=== PATIENT | male | born 1960 | race Caucasian/White ===

== ENCOUNTER 2025-11-02 16:16 | Inpatient (IN) ==
--- NOTE | 2025-11-02 16:57 | Emergency Department Note ---
Impression & Plan Cellulitis, Wound cellulitis ED Provider Note CHIEF COMPLAINT: Right foot swelling HISTORY OF PRESENTING ILLNESS: The patient is a 65-year-old male who arrives to the emergency department with family for evaluation of right foot pain, and infection. Patient was seen by his primary care provider, who established care with today. He states he had not seen a provider in the past 5 years. He states upon evaluation at the PCP, the primary care provider told him to come immediately to the emergency department, for concern of infection. Patient has pain, and redness, with swelling in the digits of the foot, dorsal surface, as well as plantar surface of the foot, that extends through the foot, with pain extending into the calf. Patient does have wounds on the dorsal and plantar surface of the foot as well. Patient denies fevers. REVIEW OF SYSTEMS: See HPI for pertinent positives and pertinent negatives. ALLERGIES: See below MEDICATIONS: See below PAST MEDICAL HISTORY: See below PHYSICAL EXAM: VITALS: Vitals are noted on the nurse's note and reviewed by myself. Vital signs stable. GENERAL: 65-year-old male, in no acute distress, nondiaphoretic. SKIN: Erythema, edema noted to the dorsal surface of the right foot, sloughing noted on the dorsal surface of the right great toe. Blister noted on the dorsal surface of the right fourth toe. Erythema, ecchymosis, and sloughing noted to the plantar surface of the right great toe. HEART: Regular rate and rhythm without murmurs gallops or rubs. LUNGS: Clear to auscultation bilaterally without wheezes, rales or rhonchi. No retractions or accessory muscle use. MUSCULOSKELETAL: Full ROM, digits of right foot, full ROM, right ankle. Sensation intact to dull and sharp RLE. NEURO: Patient was alert and oriented to person place and time. No focal neurological deficits. DIFFERENTIAL DIAGNOSIS: Cellulitis, abscess, MRSA infection, DVT, necrotizing fasciitis, dermatitis, drug eruption, allergic reaction, as well as other pathologies. ED COURSE AND MEDICAL DECISION MAKING: HISTORY FROM INDEPENDENT HISTORIAN: Family member at bedside serving as secondary historian. MEDICATIONS GIVEN: 4.5 g IV Zosyn, 1250 mg IV vancomycin, 1 L NSS bolus, tetanus booster MONITOR: Continuous lump inspector: Order was placed for continuous lump inspector. Patient was placed on the lump inspector and continuous pulse ox. Patient was noted to be in normal sinus rhythm at an initial rate of 98 bpm per my interpretation. EKG: EKG was interpreted by myself as normal sinus rhythm at a rate of 80 bpm, no ST elevation or depression. No previous for comparison. INTERPRETATION OF LABS: I interpreted the labs with full lab results as below in the lab section of this note. Pertinent lab results discussed in the MDM section below. INTERPRETATION OF IMAGING: Imaging studies were interpreted by myself and read by radiology as per the imaging section of this note. CONSULTATIONS: Podiatry MDM SUMMARY: The patient is a pleasant, 65-year-old male who arrives to the emergency department for evaluation of the above-stated complaint. Saline lock was established, sepsis workup was obtained. CBC shows leukocytosis 13.76, no anemia. Coags within normal limits. CMP is unremarkable. Glucose 322. Lactate 1.4, procalcitonin 0.03. Troponin negative. Blood cultures obtained, for further evaluation. Chest x-ray imaging per my interpretation shows no acute cardiopulmonary process. X-ray imaging of the right foot shows findings consistent with soft tissue edema, and soft tissue gas involving the great toe which is concerning for necrotizing soft tissue infection. Podiatry was consulted, who recommended admission for IV antibiotics, and surgical intervention. Patient will require MRI imaging of the foot for further evaluation. The was admitted to the [facility] service for further evaluation and management. Please refer to their documentation. DIAGNOSIS: Cellulitis, wound The chart was completed utilizing [employer] Speech voice recognition software. Grammatical errors, random word insertions, pronoun errors, and incomplete sentences are an occasional consequence of this system due to software limitations, ambient noise, and hardware issues. Any formal questions or concerns about the content, text, or information contained within the body of this dictation should be directly addressed to the provider for clarification. Past Med/Surg History Problem List (Updated 11/14/25 @ 18:15 by NANCY Ruiz) Wound cellulitis (Acute) Cellulitis (Acute) Diabetes type 2 Encounter for pre-operative examination Osteomyelitis of great toe of right foot Unspecified open wound, right foot, initial encounter Tobacco use disorder Medical History Diabetes mellitus type 2 in nonobese CAD (coronary artery disease) Alcohol use disorder Diabetic ulcer of right great toe Peripheral arterial disease Surgical History Hx of heart artery stent Family History Father Heart disease Diabetes Social History Smoking Status: Current every day smoker Tobacco Type: Cigarettes Hx Alcohol Use: Yes Hx Substance Use: No Preferred Language: Turkmen Communication Ability: Effective Scenario Writer Required: No Beliefs That Will Affect Care: None Current Living Situation: Alone Feels Safe at Home: Yes Assistive Devices: None Allergies Allergies Allergy/AdvReac Type Severity Reaction Status Date / Time No Known Allergies Allergy Unverified 11/02/25 17:36 Home Meds Home Medications Medication Instructions Recorded Confirmed naproxen sodium 220 mg tablet 220 mg PO DAILY PRN Pain 11/02/25 11/02/25 Previous Rx's Medication Instructions Recorded blood sugar diagnostic (True #100 ea 11/09/25 Metrix Glucose Test Strip) blood-glucose meter (True Metrix #1 ea 11/09/25 Glucose Meter) insulin glargine U-300 conc 300 21 unit (0.07 mL) subcut DAILY #6 11/09/25 unit/mL (3 mL) subcutaneous pen mL lancets 30 gauge (TRUEplus Lancets) #100 ea 11/09/25 metformin 500 mg tablet,extended 500 mg PO DAILY #30 tabs 11/09/25 release 24 hr pen needle, diabetic 32 gauge x #100 ea 11/09/2532" amoxicillin 875 mg-potassium 1 tab PO BIDM 1 week #14 tabs 11/10/25 clavulanate 125 mg tablet aspirin 81 mg tablet,delayed 81 mg PO DAILY #30 tabs 11/10/25 release atorvastatin 40 mg tablet 40 mg PO QAM #30 tabs 11/10/25 folic acid 1 mg tablet 1 mg PO QAM #30 tabs 11/10/25 nicotine 21 mg/24 hr daily 1 patch transdermal QAM #28 ea 11/10/25 transdermal patch (Nicoderm CQ) thiamine HCl (vitamin B1) 100 mg 100 mg PO QAM #30 tabs 11/10/25 tablet Results & Data (ED) Vital Signs Vital Signs - 24 hr 11/02/25 16:19 Temperature 36.7 C Temperature Source Temporal Artery Scan Pulse Rate 98 H Respiratory Rate 18 Respiratory Effort / Characteristics Non-Labored Spontaneous Respiratory Depth Normal Blood Pressure 127/85 Blood Pressure Mean 99 Pulse Oximetry 96 Oxygen Delivery Method Room Air Sepsis Recent Fever Within 48 Hours No Sepsis New/Unexplained Change in Mental Status No Sepsis Action Taken by Nursing No Action Required Home Medications Current Medication List: was personally reviewed by me Laboratory Data Attestation: I reviewed the patient's lab results. 11/10/25 06:05 11/10/25 06:05 Lab Results 11/02/25 11/02/25 Range/Units 16:35 17:00 WBC 13.76 H (4.8-10.8) K/ul RBC 4.94 (4.70-6.10) M/uL Hgb 17.0 (14.0-18.0) g/dL Hct 45.8 (42.0-52.0) % MCV 92.7 (80.0-100.0) fL MCH 34.4 H (25.0-34.0) pg MCHC 37.1 H (32.0-36.0) g/dL RDW Std Deviation 43.5 (36.4-46.3) fL RDW Coeff of Maria Elena 12.6 (11.5-14.5) % Plt Count 275 (130-400) K/uL MPV 10.0 (9.4-12.4) fL Immature Gran % (Auto) 0.9 % Neut % (Auto) 82.0 % Lymph % (Auto) 8.0 % [place] % (Auto) 7.8 % Eos % (Auto) 0.6 % Baso % (Auto) 0.7 % Neut # (Auto) 11.29 H (1.40-6.50) K/uL Lymph # (Auto) 1.10 L (1.20-3.40) K/uL [place] # (Auto) 1.08 H (0.11-0.59) K/uL Eos # (Auto) 0.08 (0.00-0.50) K/uL Baso # (Auto) 0.09 (0.00-0.20) K/uL Immature Gran # (Auto) 0.12 (0.01-0.20) K/uL PT 10.9 (9.0-12.0) Seconds INR 1.0 (0.9-1.1) APTT 26 (21-31) Seconds PTT Ratio 1.0 Sodium 136 (136-145) mmol/L Potassium 3.8 (3.5-5.1) mmol/L Chloride 101 (98-107) mmol/L Carbon Dioxide 26 (21-32) mmol/L Anion Gap 9 (3-11) BUN 4 L (6-23) mg/dl Creatinine 0.57 L (0.6-1.4) mg/dl Est Cr Clr Drug Dosing 96.6 ml/min eGFR 107.45 BUN/Creatinine Ratio 7.0 L (10-20) Glucose 322 H* (70-99(Fasting)) mg/dl Lactate 1.4 (0.4-2.0) mmol/L Calcium 9.2 (8.6-10.3) mg/dl Magnesium 1.8 (1.7-2.4) mg/dl Total Bilirubin 0.6 (0.2-1.0) mg/dl AST 27 (13-39) U/L ALT 21 (7-52) U/L Alkaline Phosphatase 123 H (34-104) U/L Troponin I High Sens 3.4 (0-20) pg/ml Total Protein 7.9 (6.0-8.3) gm/dl Albumin 3.3 L (3.4-5.0) gm/dl Globulin 4.6 H (2.5-4.0) gm/dl Albumin/Globulin Ratio 0.7 L (0.9-2) Procalcitonin 0.03 (0-0.5) ng/ml Administered Medications Discontinued Medications Amoxicillin/Clavulanate Potassium (Amoxicillin/Clavulanate 875 Mg Tab) 1 tab PO BIDM [facility]; Protocol Stop: 11/14/25 16:59 Last Admin: 11/12/25 08:42 Dose: 1 tab Documented By: Admin: 11/11/25 17:33 Dose: 1 tab Documented By: Admin: 11/11/25 08:26 Dose: 1 tab Documented By: Admin: 11/10/25 17:29 Dose: 1 tab Documented By: Admin: 11/10/25 07:54 Dose: 1 tab Documented By: Admin: 11/09/25 18:01 Dose: 1 tab Documented By: Admin: 11/09/25 07:53 Dose: 1 tab Documented By: Admin: 11/08/25 17:35 Dose: 1 tab Documented By: Admin: 11/08/25 08:39 Dose: 1 tab Documented By: Admin: 11/07/25 16:40 Dose: 1 tab Documented By: EMILIANO Aspirin (Aspirin 81 Mg Ectab) 81 mg PO DAILY [facility] Stop: 12/02/25 22:08 Last Admin: 11/12/25 08:42 Dose: 81 mg Documented By: Admin: 11/11/25 08:27 Dose: 81 mg Documented By: Admin: 11/10/25 07:54 Dose: 81 mg Documented By: Admin: 11/09/25 07:53 Dose: 81 mg Documented By: Admin: 11/08/25 08:39 Dose: 81 mg Documented By: Admin: 11/07/25 09:07 Dose: 81 mg Documented By: Admin: 11/06/25 08:13 Dose: 81 mg Documented By: srinivasan Admin: 11/05/25 07:41 Dose: Not Given Documented By: Admin: 11/04/25 08:51 Dose: 81 mg Documented By: Admin: 11/03/25 07:17 Dose: 81 mg Documented By: Admin: 11/03/25 00:21 Dose: 81 mg Documented By: allison Atorvastatin Calcium (Atorvastatin 40 Mg Tab) 40 mg PO QAM [facility] Stop: 12/03/25 12:14 Last Admin: 11/12/25 08:42 Dose: 40 mg Documented By: Admin: 11/11/25 08:27 Dose: 40 mg Documented By: Admin: 11/10/25 07:55 Dose: 40 mg Documented By: Admin: 11/09/25 07:53 Dose: 40 mg Documented By: Admin: 11/08/25 08:40 Dose: 40 mg Documented By: Admin: 11/07/25 10:00 Dose: 40 mg Documented By: Admin: 11/06/25 08:12 Dose: 40 mg Documented By: srinivasan Admin: 11/05/25 07:35 Dose: 40 mg Documented By: Admin: 11/04/25 08:51 Dose: 40 mg Documented By: Admin: 11/03/25 13:54 Dose: 40 mg Documented By: ASA Bupivacaine HCl (Bupivacaine 0.5 % 5 Mg/1 Ml Mpf 30ml Vial) Confirm Administered Dose 30 ml .ROUTE .STK-MED ONE Stop: 11/05/25 13:08 Last Admin: 11/05/25 14:14 Dose: Not Given Documented By: LEMUEL Diphtheria/Pertussis/Tetanus Vacc (Diphther/Tetan/Pertus Vaccine (Tdap, Adol/Adult) 0.5ml) 0.5 ml IM .ONCE ONE Stop: 11/02/25 22:31 Last Admin: 11/02/25 22:53 Dose: 0.5 ml Documented By: KHOA Folic Acid (Folic Acid 1 Mg Tab) 1 mg PO QAM [facility] Stop: 12/02/25 22:08 Last Admin: 11/12/25 08:42 Dose: 1 mg Documented By: Admin: 11/11/25 08:27 Dose: 1 mg Documented By: Admin: 11/10/25 07:55 Dose: 1 mg Documented By: Admin: 11/09/25 07:53 Dose: 1 mg Documented By: Admin: 11/08/25 08:40 Dose: 1 mg Documented By: Admin: 11/07/25 10:00 Dose: 1 mg Documented By: Admin: 11/06/25 08:12 Dose: 1 mg Documented By: srinivasan Admin: 11/05/25 07:35 Dose: 1 mg Documented By: Admin: 11/04/25 08:51 Dose: 1 mg Documented By: Admin: 11/03/25 07:17 Dose: 1 mg Documented By: Admin: 11/03/25 00:21 Dose: 1 mg Documented By: abl Gadobutrol (Gadobutrol 7.5ml Vial) 5.5 ml IV ONCE ONE Stop: 11/03/25 08:40 Last Admin: 11/03/25 08:40 Dose: 5.5 ml Documented By: EAN Heparin Sodium (Porcine) (Heparin Sod 5,000 Unit/0.5 Ml Vial) 5,000 units SQ Q12 [facility] Stop: 12/02/25 22:08 Last Admin: 11/12/25 08:43 Dose: 5,000 units Documented By: Admin: 11/11/25 21:01 Dose: 5,000 units Documented By: saloni Admin: 11/11/25 08:34 Dose: 5,000 units Documented By: Admin: 11/10/25 21:42 Dose: 5,000 units Documented By: Admin: 11/05/25 20:20 Dose: Not Given Documented By: Admin: 11/05/25 07:31 Dose: Not Given Documented By: WELDER FITTER GAS Admin: 11/04/25 21:06 Dose: 5,000 units Documented By: Admin: 11/04/25 08:52 Dose: Not Given Documented By: WELDER FITTER GAS Admin: 11/03/25 20:32 Dose: 5,000 units Documented By: Admin: 11/03/25 07:24 Dose: 5,000 units Documented By: Admin: 11/02/25 22:54 Dose: 5,000 units Documented By: KHOA Vancomycin HCl 1,250 mg/ (Sodium Chloride) 525 mls @ 200 mls/hr IV NOW ONE Stop: 11/02/25 20:03 Last Infusion: 11/02/25 21:30 Dose: Infused Documented By: allison Admin: 11/02/25 18:36 Dose: 200 mls/hr Documented By: ABEL Piperacillin Sod/Tazobactam Sod (Zosyn) 4.5 gm in 100 mls @ 200 mls/hr IV NOW ONE; Protocol Stop: 11/02/25 17:55 Last Infusion: 11/02/25 18:12 Dose: Infused Documented By: Admin: 11/02/25 17:42 Dose: 200 mls/hr Documented By: jameson Sodium Chloride (Nss) 1,000 mls @ 999 mls/hr IV .Q1H1M ONE Stop: 11/02/25 18:33 Last Infusion: 11/02/25 19:58 Dose: Infused Documented By: allison Admin: 11/02/25 17:41 Dose: 999 mls/hr Documented By: jameson Lactated Ringer's (Lr) 1,000 mls @ 80 mls/hr IV .[id number] ONE Stop: 11/03/25 10:38 Last Infusion: 11/03/25 11:07 Dose: Infused Documented By: Infusion: 11/03/25 09:30 Dose: 80 mls/hr Documented By: Infusion: 11/03/25 07:58 Dose: 0 mls/hr Documented By: Admin: 11/02/25 22:58 Dose: 80 mls/hr Documented By: KHOA Piperacillin Sod/Tazobactam Sod (Zosyn) 4.5 gm in 100 mls @ 25 mls/hr IV Q8H [facility]; Protocol Stop: 12/15/25 00:00 Last Infusion: 11/07/25 13:17 Dose: Infused Documented By: Admin: 11/07/25 09:05 Dose: 25 mls/hr Documented By: Infusion: 11/07/25 03:28 Dose: Infused Documented By: Admin: 11/06/25 23:28 Dose: 25 mls/hr Documented By: Infusion: 11/06/25 19:46 Dose: Infused Documented By: Admin: 11/06/25 15:46 Dose: 25 mls/hr Documented By: [email or web address] Infusion: 11/06/25 12:32 Dose: Infused Documented By: Admin: 11/06/25 08:12 Dose: 25 mls/hr Documented By: srinivasan Infusion: 11/06/25 04:15 Dose: Infused Documented By: Admin: 11/06/25 00:08 Dose: 25 mls/hr Documented By: Infusion: 11/05/25 20:21 Dose: Infused Documented By: Admin: 11/05/25 16:07 Dose: 25 mls/hr Documented By: WELDER FITTER GAS Infusion: 11/05/25 12:15 Dose: Infused Documented By: WELDER FITTER GAS Admin: 11/05/25 07:38 Dose: 25 mls/hr Documented By: WELDER FITTER GAS Infusion: 11/05/25 04:48 Dose: Infused Documented By: Admin: 11/05/25 00:54 Dose: 25 mls/hr Documented By: Infusion: 11/04/25 20:56 Dose: Infused Documented By: Admin: 11/04/25 16:52 Dose: 25 mls/hr Documented By: WELDER FITTER GAS Infusion: 11/04/25 13:06 Dose: Infused Documented By: WELDER FITTER GAS Admin: 11/04/25 09:04 Dose: 25 mls/hr Documented By: WELDER FITTER GAS Infusion: 11/04/25 05:46 Dose: Infused Documented By: Admin: 11/04/25 01:46 Dose: 25 mls/hr Documented By: Infusion: 11/03/25 20:52 Dose: Infused Documented By: Admin: 11/03/25 16:52 Dose: 25 mls/hr Documented By: Infusion: 11/03/25 11:07 Dose: Infused Documented By: Infusion: 11/03/25 07:58 Dose: 25 mls/hr Documented By: Infusion: 11/03/25 07:36 Dose: 0 mls/hr Documented By: Admin: 11/03/25 07:16 Dose: 25 mls/hr Documented By: Infusion: 11/03/25 06:00 Dose: Infused Documented By: abl Admin: 11/03/25 01:51 Dose: 25 mls/hr Documented By: abl Vancomycin HCl 750 mg/ Sodium (Chloride) 265 mls @ 200 mls/hr IV Q8H [facility] Stop: 12/15/25 00:00 Last Infusion: 11/04/25 11:03 Dose: Infused Documented By: WELDER FITTER GAS Admin: 11/04/25 09:04 Dose: 200 mls/hr Documented By: WELDER FITTER GAS Infusion: 11/04/25 03:07 Dose: Infused Documented By: Admin: 11/04/25 01:47 Dose: 200 mls/hr Documented By: Infusion: 11/03/25 18:33 Dose: Infused Documented By: Admin: 11/03/25 16:53 Dose: 200 mls/hr Documented By: Infusion: 11/03/25 09:30 Dose: Infused Documented By: Admin: 11/03/25 07:58 Dose: 200 mls/hr Documented By: WRBrittany Infusion: 11/03/25 01:49 Dose: Infused Documented By: abl Admin: 11/03/25 00:23 Dose: 200 mls/hr Documented By: abl Vancomycin HCl (Vancomycin Hcl / Nss) 1,000 mg in 270 mls @ 200 mls/hr IV Q12H [facility] Stop: 12/16/25 20:59 Last Infusion: 11/05/25 22:17 Dose: Infused Documented By: Admin: 11/05/25 20:34 Dose: 200 mls/hr Documented By: Infusion: 11/05/25 09:48 Dose: Infused Documented By: WELDER FITTER GAS Admin: 11/05/25 07:43 Dose: 200 mls/hr Documented By: Infusion: 11/04/25 22:44 Dose: Infused Documented By: Admin: 11/04/25 21:23 Dose: 200 mls/hr Documented By: ADORE Lactated Ringer's (Lr) 1,000 mls @ 15 mls/hr IV .Q24H [facility] Stop: 11/08/25 11:29 Last Admin: 11/07/25 15:16 Dose: Not Given Documented By: Infusion: 11/07/25 15:16 Dose: Infused Documented By: Infusion: 11/07/25 15:15 Dose: 0 mls/hr Documented By: Admin: 11/06/25 11:08 Dose: 15 mls/hr Documented By: srinivasan Infusion: 11/05/25 20:53 Dose: Infused Documented By: Admin: 11/05/25 11:28 Dose: 15 mls/hr Documented By: ROSY Potassium Chloride (K Ross / Wtr) 10 meq in 100 mls @ 100 mls/hr IV Q1H [facility] Stop: 11/05/25 17:14 Last Infusion: 11/05/25 19:41 Dose: Infused Documented By: Admin: 11/05/25 17:06 Dose: 100 mls/hr Documented By: Infusion: 11/05/25 17:05 Dose: Infused Documented By: Admin: 11/05/25 16:05 Dose: 100 mls/hr Documented By: Infusion: 11/05/25 15:59 Dose: Infused Documented By: Admin: 11/05/25 14:59 Dose: 100 mls/hr Documented By: stef Infusion: 11/05/25 14:57 Dose: Infused Documented By: stef Admin: 11/05/25 13:49 Dose: 100 mls/hr Documented By: LEMUEL Vancomycin HCl 750 mg/ Sodium (Chloride) 265 mls @ 200 mls/hr IV Q12H [facility] Stop: 12/16/25 20:59 Last Infusion: 11/07/25 10:28 Dose: Infused Documented By: Admin: 11/07/25 09:03 Dose: 200 mls/hr Documented By: Infusion: 11/06/25 23:21 Dose: Infused Documented By: Admin: 11/06/25 21:57 Dose: 200 mls/hr Documented By: Infusion: 11/06/25 11:02 Dose: Infused Documented By: Admin: 11/06/25 09:30 Dose: 200 mls/hr Documented By: srinivasan Insulin Aspart (Insulin Aspart Per Unit Charge) 0 units SC ACHS [facility] Stop: 12/02/25 22:08 Last Admin: 11/05/25 20:35 Dose: 3 units Documented By: TEODORO Co-signed By: JACKIE Admin: 11/05/25 17:15 Dose: 4 units Documented By: LEMUEL Co-signed By: GAYLE Admin: 11/05/25 12:15 Dose: Not Given Documented By: Admin: 11/05/25 09:46 Dose: Not Given Documented By: Admin: 11/04/25 21:06 Dose: 2 units Documented By: ADORE Co-signed By: CAROL Admin: 11/04/25 18:10 Dose: 4 units Documented By: LEMUEL Co-signed By: stef Admin: 11/04/25 12:43 Dose: 6 units Documented By: ELMUEL Co-signed By: stef Admin: 11/04/25 09:54 Dose: 3 units Documented By: LEMUEL Co-signed By: stef Admin: 11/03/25 20:33 Dose: 1 units Documented By: LORE Co-signed By: MOISES Admin: 11/03/25 18:26 Dose: Not Given Documented By: Admin: 11/03/25 11:38 Dose: 3 units Documented By: REUBEN Co-signed By: JUDD Admin: 11/03/25 07:31 Dose: 2 units Documented By: REUBEN Co-signed By: MARY Admin: 11/02/25 22:55 Dose: 5 units Documented By: KHOA Co-signed By: abl Insulin Aspart (Insulin Aspart Per Unit Charge) 0 units SC Q6 [facility] Stop: 12/06/25 05:59 Last Admin: 11/06/25 23:27 Dose: Not Given Documented By: Admin: 11/06/25 17:47 Dose: 1 units Documented By: srinivasan Co-signed By: EMILIANO Admin: 11/06/25 11:46 Dose: Not Given Documented By: srinivasan Admin: 11/06/25 05:51 Dose: 3 units Documented By: TEODORO Co-signed By: MOISES Insulin Aspart (Insulin Aspart Per Unit Charge) 0 units SC ACHS [facility] Stop: 12/07/25 07:29 Last Admin: 11/12/25 12:10 Dose: 6 units Documented By: JAKE Co-signed By: CELSO Admin: 11/12/25 08:43 Dose: 8 units Documented By: JAKE Co-signed By: SUZY Admin: 11/11/25 21:01 Dose: 1 units Documented By: saloni Co-signed By: UMER Admin: 11/11/25 17:35 Dose: 10 units Documented By: SORAYA Co-signed By: YVROSE Admin: 11/11/25 12:33 Dose: 6 units Documented By: SORAYA Co-signed By: YVROSE Admin: 11/11/25 08:31 Dose: 9 units Documented By: SORAYA Co-signed By: YVROSE Admin: 11/10/25 21:42 Dose: 1 units Documented By: ADORE Co-signed By: ACStephane Admin: 11/10/25 17:40 Dose: 8 units Documented By: SAÚL Co-signed By: matthew Admin: 11/10/25 13:10 Dose: 11 units Documented By: SAÚL Co-signed By: CMBrittany Admin: 11/10/25 09:17 Dose: 7 units Documented By: SAÚL Co-signed By: CMBrittany Admin: 11/09/25 20:36 Dose: 1 units Documented By: ADORE Co-signed By: ACO Admin: 11/09/25 18:01 Dose: 6 units Documented By: KMAustyn Co-signed By: mhc Admin: 11/09/25 12:44 Dose: 10 units Documented By: KMAustyn Co-signed By: AMS Admin: 11/09/25 10:24 Dose: 8 units Documented By: KMAustyn Co-signed By: [facility] [place] Admin: 11/08/25 21:12 Dose: Not Given Documented By: Admin: 11/08/25 17:36 Dose: 14 units Documented By: EMILIANO Co-signed By: OLI Admin: 11/08/25 13:02 Dose: 5 units Documented By: EMILIANO Co-signed By: carroll Admin: 11/08/25 08:45 Dose: 5 units Documented By: EMILIAON Co-signed By: OLI Admin: 11/07/25 20:42 Dose: 1 units Documented By: TEODORO Co-signed By: NARCISA Admin: 11/07/25 17:27 Dose: 5 units Documented By: EMILIANO Co-signed By: CRYSTAL Admin: 11/07/25 12:30 Dose: 6 units Documented By: EMILIANO Co-signed By: CRYSTAL Admin: 11/07/25 09:01 Dose: 7 units Documented By: EMILIANO Co-signed By: CRYSTAL Insulin Aspart (Insulin Aspart Per Unit Charge) 0 units SC TODAY@0000,0400 [facility] Stop: 12/08/25 00:00 Last Admin: 11/08/25 04:26 Dose: Not Given Documented By: Admin: 11/08/25 00:07 Dose: Not Given Documented By: TEODORO Insulin Glargine (Lantus Per Unit Charge) 10 units SQ ONE ONE Stop: 11/02/25 22:10 Last Admin: 11/03/25 00:21 Dose: 10 units Documented By: allison Co-signed By: DENZEL Insulin Glargine (Lantus Per Unit Charge) 8 units SQ HS [facility] Stop: 12/03/25 20:59 Last Admin: 11/03/25 20:32 Dose: 8 units Documented By: LORE Co-signed By: MOISES Insulin Glargine (Lantus Per Unit Charge) 10 units SQ HS [facility] Stop: 12/04/25 20:59 Last Admin: 11/05/25 20:34 Dose: 10 units Documented By: TEODORO Co-signed By: JACKIE Admin: 11/04/25 21:06 Dose: 10 units Documented By: ADORE Co-signed By: CAROL Insulin Glargine (Insulin Glargine 100 Unit/Ml Vial) 0 units SC BID [facility]; Protocol Stop: 12/07/25 08:59 Last Admin: 11/07/25 10:18 Dose: Not Given Documented By: EMILIANO Insulin Glargine (Lantus Per Unit Charge) 0 units SC BID [facility]; Protocol Stop: 12/07/25 08:59 Last Admin: 11/07/25 10:21 Dose: Not Given Documented By: EMILIANO Insulin Glargine (Lantus Per Unit Charge) 0 units SC BID [facility]; Protocol Stop: 12/07/25 09:44 Last Admin: 11/07/25 10:00 Dose: 5 units Documented By: EMILIANO Co-signed By: CRYSTAL Insulin Glargine (Lantus Per Unit Charge) 0 units SC [facility]; Protocol Stop: 12/08/25 08:59 Last Admin: 11/08/25 08:42 Dose: 10 units Documented By: EMILIANO Co-signed By: OLI Insulin Glargine (Lantus Per Unit Charge) 5 units SC NOW ONE; Protocol Stop: 11/07/25 13:01 Last Admin: 11/07/25 13:21 Dose: 5 units Documented By: EMILIANO Co-signed By: BRANDON Insulin Glargine (Lantus Per Unit Charge) 12 units [facility]; Protocol Stop: 12/08/25 08:59 Last Admin: 11/10/25 09:18 Dose: 12 units Documented By: SAÚL Co-signed By: OLI Admin: 11/09/25 10:23 Dose: 12 units Documented By: SAÚL Co-signed By: [email or web address] Insulin Glargine (Lantus Per Unit Charge) 16 units [facility]; Protocol Stop: 12/08/25 08:59 Last Admin: 11/11/25 08:31 Dose: 16 units Documented By: SORAYA Co-signed By: YVROSE Insulin Glargine (Lantus Per Unit Charge) 18 units [facility]; Protocol Stop: 12/08/25 08:59 Last Admin: 11/12/25 08:49 Dose: 18 units Documented By: JAKE Co-signed By: SUZY Miscellaneous (Remove Nicoderm Patch) 1 each N/A DAILY@[id number] [facility] Stop: 12/03/25 08:58 Last Admin: 11/12/25 08:42 Dose: 1 each Documented By: Admin: 11/11/25 08:26 Dose: 1 each Documented By: Admin: 11/10/25 07:56 Dose: 1 each Documented By: Admin: 11/09/25 07:54 Dose: 1 each Documented By: Admin: 11/08/25 08:39 Dose: 1 each Documented By: Admin: 11/07/25 10:00 Dose: 1 each Documented By: Admin: 11/06/25 08:13 Dose: 1 each Documented By: [email or web address] Admin: 11/05/25 07:35 Dose: 1 each Documented By: Admin: 11/04/25 08:51 Dose: 1 each Documented By: Admin: 11/03/25 07:16 Dose: 1 each Documented By: WRM Nicotine (Nicotine 21 Mg/24 Hr Tdsy) 1 patch TD QAM POORNIMA Stop: 12/02/25 22:08 Last Admin: 11/12/25 08:42 Dose: 1 patch Documented By: Admin: 11/11/25 08:27 Dose: 1 patch Documented By: Admin: 11/10/25 07:55 Dose: 1 patch Documented By: Admin: 11/09/25 07:53 Dose: 1 patch Documented By: Admin: 11/08/25 08:40 Dose: 1 patch Documented By: Admin: 11/07/25 09:07 Dose: 1 patch Documented By: Admin: 11/06/25 08:12 Dose: 1 patch Documented By: srinivasan Admin: 11/05/25 07:36 Dose: 1 patch Documented By: Admin: 11/04/25 08:50 Dose: 1 patch Documented By: Admin: 11/03/25 07:17 Dose: 1 patch Documented By: Admin: 11/03/25 00:19 Dose: 1 patch Documented By: abl Potassium Chloride (Potassium Chloride Crtab 20 Meq Tabcr) 40 meq PO TID POORNIMA Stop: 11/06/25 09:01 Last Admin: 11/06/25 08:12 Dose: 40 meq Documented By: srinivasan Admin: 11/05/25 20:35 Dose: 40 meq Documented By: Admin: 11/05/25 13:45 Dose: 40 meq Documented By: LEMUEL Thiamine HCl (Thiamine Hcl 100 Mg Tab) 100 mg PO QAM POORNIMA Stop: 12/02/25 22:08 Last Admin: 11/12/25 08:42 Dose: 100 mg Documented By: Admin: 11/11/25 08:27 Dose: 100 mg Documented By: Admin: 11/10/25 07:55 Dose: 100 mg Documented By: Admin: 11/09/25 07:53 Dose: 100 mg Documented By: Admin: 11/08/25 08:40 Dose: 100 mg Documented By: Admin: 11/07/25 10:00 Dose: 100 mg Documented By: Admin: 11/06/25 08:13 Dose: 100 mg Documented By: srinivasan Admin: 11/05/25 07:35 Dose: 100 mg Documented By: Admin: 11/04/25 08:51 Dose: 100 mg Documented By: WELDER FITTER GAS Admin: 11/03/25 07:17 Dose: 100 mg Documented By: Admin: 11/03/25 00:20 Dose: 100 mg Documented By: abl Vancomycin HCl (Vancomycin Hcl 1000mg/20ml Vial) Confirm Administered Dose 50 mg .ROUTE .STK-MED ONE Stop: 11/05/25 13:08 Last Admin: 11/05/25 14:14 Dose: Not Given Documented By: WELDER FITTER GAS Vancomycin HCl (Vancomycin Hcl 1000mg/20ml Vial) Confirm Administered Dose 50 mg .ROUTE .STK-MED ONE Stop: 11/06/25 14:50 Last Admin: 11/06/25 16:18 Dose: 50 mg Documented By: [id number] Imaging Data Attestation: I personally reviewed and interpreted this imaging study as follows: Discharge Plan Visit Data Chief Complaint: Foot Injury/Pain Stated Complaint: R FOOT SWELLING, REF BY DOC ED Provider: [facility] ED Midlevel Provider: Sierra Eaton Discharge Problem: Cellulitis, Wound cellulitis Patient Disposition: Admitted As Inpatient Condition: Critical Discharge Instructions Interventions: ED Discharge Assessment Last Done: 11/02/25 22:10
[2025-11-02 17:06] LABS: Hematocrit (blood only) 45.8 % (42.0-52.0); Hemoglobin 17.0 g/dL (14.0-18.0); Immature Granulocytes # (auto) 0.12 K/uL (0.01-0.20); Immature Granulocytes % (auto) 0.9 %; Mean Corpuscular Hemoglobin 34.4 pg (25.0-34.0); Mean Corpuscular Volume 92.7 fL (80.0-100.0); Platelet Count 275 K/uL (130-400); RDW Standard Deviation 43.5 fL (36.4-46.3); Red Blood Count 4.94 M/uL (4.70-6.10); White Blood Count 13.76 K/ul (4.8-10.8)
[2025-11-02] MEDS ORDERED: VANCOMYCIN CONSULT ACTIVE PRN (17:26)
[2025-11-02 17:31] LABS: Alanine Aminotransferase 21.0 U/L (7-52); Albumin Globulin Ratio 0.7 (0.9-2); Albumin Level 3.3 gm/dl (3.4-5.0); Alkaline Phosphatase 123.0 U/L (34-104); Anion Gap 9.0 (3-11); Bilirubin,Total 0.6 mg/dl (0.2-1.0); Blood Urea Nitrogen 4.0 mg/dl (6-23); Calcium 9.2 mg/dl (8.6-10.3); Carbon Dioxide 26.0 mmol/L (21-32); Chloride 101.0 mmol/L (98-107); Creatinine Clr Calc Pharmacy 96.6 ml/min; Globulin 4.6 gm/dl (2.5-4.0); Glucose 322.0 mg/dl (70-99(Fasting)); Magnesium 1.8 mg/dl (1.7-2.4); Potassium 3.8 mmol/L (3.5-5.1); Sodium 136.0 mmol/L (136-145); Total Protein 7.9 gm/dl (6.0-8.3)
[2025-11-02 17:38] LABS: INR 1.0 (0.9-1.1); Partial Thromboplastin Time 26 Seconds (21-31); Prothrombin Time 10.9 Seconds (9.0-12.0)
[2025-11-02] MEDS: SODIUM CHLORIDE 0.9% 1,000 ML IV ONE (17:41)
[2025-11-02] MEDS: PIPERACILLIN/TAZOBACTAM 4.5 GM/100 ML BAG IV ONE (17:42)
--- NOTE | 2025-11-02 18:21 | XRay Report ---
Clinical History: Sepsis Technique: A frontal view of the chest was obtained Findings: There are no confluent pulmonary infiltrates. The heart size is within normal limits. No pleural effusion or pneumothorax is seen. There is no definite pulmonary nodule. No fracture is noted. No foreign body is seen Impression: No active disease Electronically signed by Ceasar Malhotra 11-02-2025 6:21 PM
[2025-11-02] MEDS: VANCOMYCIN HCL 1,250 MG in SODIUM CHLORIDE 0.9% 500 ML IV ONE (18:36)
--- NOTE | 2025-11-02 18:58 | History & Physical Report ---
Date of Service November 02, 2025 Assessment & Plan (1) Unspecified open wound, right foot, initial encounter: Plan: Right foot wound infection Suspected osteomyelitis --Foot Xray, MRI pending --Normal lactate, procalcitonin -- Blood cultures pending --Started on broad-spectrum antibiotics vancomycin, Zosyn Check nasal MRSA, ESR, CRP Gentle IV fluids Podiatry consulted animation camera operator consulted as well Uncontrolled diabetes mellitus type 2 Update HbA1c Currently not taking any medications ISS, basal Insulin, Accu checks, Diabetic diet Pharmacy Glycemic control consult telehealth nurse educator consulted as well Elevated blood pressure Likely situational Monitor Consider antihypertensives if needed Coronary artery disease S/P stent Currently not taking any medications Started on aspirin 81 mg daily Check lipid panel Tobacco use disorder Currently smokes 1-1/2 to 2 packs/day Counseled to quit smoking Nicotine patch Alcohol use disorder Drinks 2 shots of swathi, 2 beers on daily basis Last drink yesterday Thiamine, folic acid Counseled to quit drinking Alcohol withdrawal protocol DVT Px: Heparin SQ CODE STATUS Full code History of Present Illness Chief Complaint: Foot Wound Primary Care Provider: Javi Morris MD Patient is a 65-year-old male with history of coronary artery disease S/P stent, diabetes mellitus type 2, tobacco use disorder, alcohol use disorder and no other significant past medical history presents with history of worsening right foot infection. Patient states that he has not seen a physician for about 5 years. Currently he does not take any medications. States that he noticed to develop blister on right foot about 1 week ago which she peeled off the skin. Since then, patient had worsening right foot swelling, redness, pain and so visited PCP today who recommended to go to ED for further evaluation. Denies any trauma, insect bite. Denies any history of chest pain, dyspnea, fever, chills, headache, focal weakness, numbness, nausea, vomiting, abdominal pain, diarrhea, dysuria. Allergies Allergy/AdvReac Type Severity Reaction Status Date / Time No Known Allergies Allergy Unverified 11/02/25 17:36 Home Medications Medication Instructions Recorded Confirmed Type naproxen sodium 220 mg tablet 220 mg PO DAILY PRN Pain 11/02/25 11/02/25 History Past Med/Surg History Problem List (Updated 11/02/25 @ 20:10 by Pj Lake MD) Unspecified open wound, right foot, initial encounter Alcohol use disorder Tobacco use disorder Diabetes mellitus type 2 in nonobese CAD (coronary artery disease) Family History (Updated 11/02/25 @ 20:08 by Pj Lake MD) Father Heart disease Diabetes Social History (Updated 11/02/25 @ 20:08 by Pj Lake MD) Smoking Status: Current every day smoker Hx Alcohol Use: Yes Hx Substance Use: No Preferred Language: Romanian Feels Safe at Home: Yes Review of Systems Review of Systems: All systems reviewed & are unremarkable except as noted in Subjective Physical Exam Physical Exam: Physical Exam: Vitals signs as noted above General Appearance: Thin, frail, chronically appearing, no apparent distress Head: normocephalic, Atraumatic Eyes: normal inspection, EOMI Neck: supple, Trachea midline Respiratory/Chest: Normal breath sounds, CTA, No accessory muscle use Cardiovascular: S1, S2, No murmur Abdomen/GI:Soft, Non tender, Bowel sounds present Extremities/Musculoskeletal:normal inspection, 1+ B/L LE edema Neurologic/Psych:AAOX3, grossly no focal neurological deficits Skin: normal color, warm,+ Right great toe plantar wound/Necrotic Results & Data Results & Data Vital Signs (Past 12 Hours) Vital Signs Temp Pulse Pulse Resp BP BP Pulse Ox 11/02/25 18:00 81 23 149/94 H 94 11/02/25 17:20 87 11/02/25 17:00 95 H 17 145/109 H 94 11/02/25 16:59 11/02/25 16:19 36.7 C 98 H 18 127/85 96 O2 Del Method 11/02/25 18:00 11/02/25 17:20 11/02/25 17:00 11/02/25 16:59 Room Air 11/02/25 16:19 Room Air Laboratory Results Short CBC 11/02/25 Range/Units 16:35 WBC 13.76 H (4.8-10.8) K/ul Hgb 17.0 (14.0-18.0) g/dL Hct 45.8 (42.0-52.0) % Plt Count 275 (130-400) K/uL BMP 11/02/25 16:35 Sodium 136 Potassium 3.8 Chloride 101 Carbon Dioxide 26 BUN 4 L Creatinine 0.57 L Glucose 322 H* Calcium 9.2 Liver Function 11/02/25 Range/Units 16:35 Total Bilirubin 0.6 (0.2-1.0) mg/dl AST 27 (13-39) U/L ALT 21 (7-52) U/L Alkaline Phosphatase 123 H (34-104) U/L Albumin 3.3 L (3.4-5.0) gm/dl Diagnostic Findings --CXR:No active disease -- Foot x-ray pending Medications Administered Home Medications Medication Instructions Recorded Confirmed naproxen sodium 220 mg tablet 220 mg PO DAILY PRN Pain 11/02/25 11/02/25 ECG Additional Comments: --EKG: Normal sinus rhythm, QTc 426.
[2025-11-02] MEDS ORDERED: DIPHTHER/TETAN/PERTUS Vaccine (Tdap, Adol/Adult) 0.5mL IM ONE (19:07)
--- NOTE | 2025-11-02 21:06 | XRay Report ---
HISTORY: Infection. TECHNIQUE: Right foot, 3 views. COMPARISON: None. FINDINGS: Soft tissue gas associated with the great toe concerning for infection. No Osseous erosion or definitive findings of acute osteomyelitis. Punctate radiopaque densities overlying the medial soft tissues of the great toe could represent soft tissue calcification or foreign bodies. No acute fracture or dislocation. The joint spaces are maintained. Small plantar enthesophyte. IMPRESSION: * Soft tissue edema and soft tissue gas involving the great toe concerning for necrotizing soft tissue infection. No definite radiographic findings of acute osteomyelitis. Consider MRI for more sensitive evaluation. Electronically signed by Jaxson Moore 11-02-2025 9:06 PM
[2025-11-02] MEDS ORDERED: PHARMACY GLYCEMIC MGMT CONSULT PRN (22:09)
[2025-11-02] MEDS ORDERED: LORazepam Inj 3 MG in SYRINGE 1.5 ML IV PRN (22:09)
[2025-11-02] MEDS ORDERED: ONDANSETRON INJ 2 MG/ML 2 ML VIAL IV PRN (22:09)
[2025-11-02] MEDS ORDERED: DEXTROSE 50% 50 ML SYRINGE IV PRN (22:09)
[2025-11-02] MEDS ORDERED: CARBOHYDRATES FOR HYPOGLYCEMIA PO PRN (22:09)
[2025-11-02] MEDS ORDERED: LORazepam Inj 1 MG in SYRINGE 0.5 ML IV PRN (22:09)
[2025-11-02] MEDS ORDERED: POLYETHYLENE (MIRALAX) 17 GM PACK PO PRN (22:09)
[2025-11-02] MEDS ORDERED: ACETAMINOPHEN 325 MG TAB PO PRN (22:09)
[2025-11-02] MEDS ORDERED: LORazepam Inj 2 MG in SYRINGE 1 ML IV PRN (22:09)
[2025-11-02] MEDS ORDERED: GLUCOSE 10 TAB/TUBE PO PRN (22:09)
[2025-11-02] MEDS ORDERED: GLUCAGON FOR INJ 1 MG VIAL SQ PRN (22:09)
[2025-11-02] MEDS ORDERED: GLUCOSE 40% GEL 15 GM TUBE PO PRN (22:09)
[2025-11-02] MEDS ORDERED: Nursing to Pharmacy Communication SCH (22:15)
[2025-11-02] MEDS: DIPHTHER/TETAN/PERTUS Vaccine (Tdap, Adol/Adult) 0.5mL IM ONE (22:53)
[2025-11-02] MEDS: HEPARIN SOD 5,000 UNIT/0.5 ML VIAL SQ SCH (22:54)
[2025-11-02] MEDS: INSULIN ASPART PER UNIT CHARGE SC SCH (22:55)
[2025-11-02] MEDS: LACTATED RINGER'S 1,000 ML IV ONE (22:58)
[2025-11-03] MEDS: NICOTINE 21 MG/24 HR TDSY TD SCH (00:19)
[2025-11-03] MEDS: THIAMINE HCL 100 MG TAB PO SCH (00:20)
[2025-11-03] MEDS: LANTUS PER UNIT CHARGE SQ ONE (00:21)
[2025-11-03] MEDS: ASPIRIN 81 MG ECTAB PO SCH (00:21)
[2025-11-03] MEDS: FOLIC ACID 1 MG TAB PO SCH (00:21)
[2025-11-03] MEDS: VANCOMYCIN 750 MG in SODIUM CHLORIDE 0.9% 250 ML IV SCH (00:23)
[2025-11-03] MEDS: PIPERACILLIN/TAZOBACTAM 4.5 GM/100 ML BAG IV SCH (01:51)
[2025-11-03 04:11] LABS: Hematocrit (blood only) 38.8 % (42.0-52.0); Hemoglobin 14.0 g/dL (14.0-18.0); Mean Corpuscular Hemoglobin 33.4 pg (25.0-34.0); Mean Corpuscular Volume 92.6 fL (80.0-100.0); Platelet Count 212 K/uL (130-400); RDW Standard Deviation 44.1 fL (36.4-46.3); Red Blood Count 4.19 M/uL (4.70-6.10); White Blood Count 10.65 K/ul (4.8-10.8)
[2025-11-03 04:22] LABS: Anion Gap 5.0 (3-11); Blood Urea Nitrogen 5.0 mg/dl (6-23); Calcium 8.1 mg/dl (8.6-10.3); Carbon Dioxide 27.0 mmol/L (21-32); Chloride 107.0 mmol/L (98-107); Cholesterol 85.0 mg/dl (0-200); Creatinine Clr Calc Pharmacy 125.1 ml/min; Glucose 98.0 mg/dl (70-99(Fasting)); HDL Cholesterol 29.0 mg/dl; Magnesium 1.7 mg/dl (1.7-2.4); Potassium 3.4 mmol/L (3.5-5.1); Sodium 139.0 mmol/L (136-145); Triglycerides 78.0 mg/dl (0-150)
[2025-11-03] MEDS: REMOVE NICODERM PATCH SCH (07:16)
[2025-11-03 08:35] LABS: Hemoglobin A1C 10.6 % (4.5-5.6)
[2025-11-03] MEDS: GADOBUTROL 7.5ML VIAL IV ONE (08:40)
[2025-11-03 09:12] LABS: Appearance Urine Clear (Clear); Glucose Urine UA 3+ (Negative)
--- NOTE | 2025-11-03 09:22 | Magnetic Resonance Report ---
Clinical history: Infection Technique: Multiple T1 and T2-weighted magnetic resonance images were obtained of the right foot before and after the administration of intravenous gadolinium contrast Findings: No definite fracture is identified. There is no subluxation or dislocation. No significant arthritic changes are seen. No focal osseous lesion is evident. There is patchy bone marrow edema throughout the great toe distal phalanx with prior enhancement, concerning for acute osteomyelitis No definite ligament tear is seen. The visualized tendons appear intact without tendinopathy, tenosynovitis or tear. There is diffuse edema of the foot musculature. There is subcutaneous edema that could be due to cellulitis. No definite soft tissue abscess is seen. There is an approximately 1.8 cm area of heterogeneous predominantly high T1 and high T2 small intensity along the medial edge of the plantar fascia at the level of the first metatarsal shaft. There is apparent heterogeneous enhancement Impression: 1. Acute osteomyelitis of the right great toe distal phalanx 2. Approximately 1.8 cm heterogeneous masslike abnormality involving the medial edge of the distal plantar fascia. 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 Soft tissue sarcoma is much less likely but cannot be excluded ACT 112: Positive. There are findings on this exam that require communication between the performing entity and the patient following Patient Test Result Information Act ([place] ACT 112) guidelines. Electronically signed by Ceasar Malhotra 11-03-2025 09:22 AM
--- NOTE | 2025-11-03 09:27 | Podiatry Consultation ---
Date of Consultation November 03, 2025 Assessment & Plan (1) Diabetic ulcer of right great toe: (2) Osteomyelitis of great toe of right foot: Plan - Order: Wound culture right great toe. Culture collected and left on patient cart in biohazard bag. - Blood culture 11/02/2025: Pending - Consult placed with orthotics for cam walker. Cam walker is not necessary for ambulation until postop. Okay to weight-bear as tolerated in normal shoe gear until Wednesday. - Dressings: Dressing order placed for once daily dressing change with Aquacel Ag and a dry sterile dressing to the right hallux wound. - X-ray results right foot 11/02/2025 reviewed: Soft tissue edema and soft tissue gas involving the great toe concerning for necrotizing soft tissue infection. No definite radiographic findings of acute osteomyelitis. - MRI results right foot 11/03/2025: Acute osteomyelitis of the distal phalanx of the right hallux. - Order placed for duplex ultrasound of the right lower extremity with ABIs. X-rays reviewed with concern for soft tissue emphysema of the distal lateral aspect of the great toe. All necrotic tissue from this level is debrided at bedside to the level of healthy bleeding underlying tissue as detailed in procedure note below. Will continue IV antibiotics over the remainder of the weekend and patient is scheduled for right hallux amputation versus partial first ray amputation 11/05/2025. N.p.o. at midnight on Wednesday. Discussed recommendation for amputation of the hallux at patient with length. Reviewed postoperative course. All questions answered. Patient is in agreement to move forward with suggested amputation of the right hallux. Thank you for consulting podiatry to aid in the care of this patient. Will continue to follow while he remains in house and recommend close follow-up in the diabetic foot clinic following discharge. Surgical Excisional Debridement: Indication:Removal of necrotic tissue to promote healing Pre-op diagnosis: Necrotic diabetic ulceration right great toe Post-op diagnosis: Same Procedure: Surgical excisional debridement diabetic ulceration right great toe Surgeon: Jarett Guadarrama DPM Anesthesia: None Bleeding:Minimal Disposition: Tolerated well Procedure: Informed consent obtained, Time Out taken. Patient understands and agrees to procedure. Excisional debridement was carried out of right great toe consisting of necrotic cutaneous, tendinous and subcutaneous tissue was carried out utilizing a curette and 15 blade to the level of healthy appearing underlying subcutaneous tissue tendon and bone. Anesthesia-none. Patient tolerated the procedure well. Bleeding-minimal. Controlled with-direct pressure. Post-debridement measurements: 4.0 x 3.0 x 1.0 cm. A total of 12 cm2 were debrided. History of Present Illness Reason for Consultation: Right hallux ulcer Attending Physician: Everardo Quintero MD History of Present Illness Genaro is a 65-year-old male who presented to [facility] at the request of his primary care physician for evaluation of right hallux ulcer with associated infection. Past medical history significant for coronary artery disease status post stent, type 2 diabetes with diabetic peripheral neuropathy, tobacco use disorder and alcohol use disorder. Reports first noticing blister to the great toe approximately 1 week ago which was deroofed at home and subsequently developed redness swelling, drainage and pain. Patient lives at home by himself in [facility]. He is an avid karl. Aside from hunting he has a 17-year-old dog which he cares for and nephew is currently caring for. Reports a relatively sedentary lifestyle but denies ambulatory dysfunction. Patient denies pain of the right foot at present. Extensive debridement of necrotic tissue to the right hallux is performed without local anesthesia pat ient denies pain. Allergies Allergy/AdvReac Type Severity Reaction Status Date / Time No Known Allergies Allergy Unverified 11/02/25 17:36 Home Medications Medication Instructions Recorded Confirmed Type naproxen sodium 220 mg tablet 220 mg PO DAILY PRN Pain 11/02/25 11/02/25 History Patient History Family History (Updated 11/02/25 @ 20:08 by Pj Lake MD) Father Heart disease Diabetes Social History (Updated 11/02/25 @ 20:08 by Pj Lake MD) Smoking Status: Current every day smoker Tobacco Type: Cigarettes Hx Alcohol Use: Yes Hx Substance Use: No Preferred Language: [place] Communication Ability: Effective Government Affairs Researcher Required: No Beliefs That Will Affect Care: None Current Living Situation: Alone Other Information That Helps Us Care for You: No Feels Safe at Home: Yes Safety Concerns: Feels Safe At This Time Assistive Devices: None Review of Systems Review of Systems: Denies nausea, vomiting, fever, chills. Denies shortness of breath or chest p ain. Reports intermittent pain to the right great toe. Physical Exam Physical Exam: Const: Appears well developed and well nourished. No signs of acute distress present. CV: Extremities: No cyanosis or edema. Capillary refill time is less than 2 seconds all digits of the bilateral foot. Posterior tibial and dorsalis pedis pulses are lightly palpable bilateral. Lymph: No palpable or visible regional lymphadenopathy. Skin: No scars, rashes, lesions or ecchymosis. Neuro: Loss of protective sensation in the bilateral foot Psych: Mood/Affect: Mood is normal. Affect is normal. Cognition: Orientation is intact to person, place and time. Focused lower extremity musculoskeletal exam: Skin of the bilateral foot is thin and atrophic with loss of hair growth. Erythema and edema to the right foot. Toenails are elongated and incurvated. Wound exam: Ulceration to the plantar lateral aspect of the interphalangeal joint of the right hallux. Mottled to dusky discoloration to the distal lateral hallux with mild maceration. Malodor noted. Scant purulent drainage. Diabetic ulcer subfirst metatarsal head right foot. No signs of local soft tissue infection. No active drainage. Hemorrhagic blister to the distal aspect of the dorsal right fourth toe. Results & Data Vital Signs (Past 12 Hours) Vital Signs Temp Pulse Pulse Resp BP Pulse Ox Pulse Ox 11/03/25 07:27 36.9 C 78 19 135/77 94 11/03/25 07:10 67 11/03/25 06:00 67 18 123/78 93 11/03/25 04:00 67 18 126/70 94 11/03/25 03:00 70 16 109/60 92 11/03/25 02:00 69 18 123/75 91 11/03/25 01:24 69 14 113/67 91 11/03/25 00:45 92 11/03/25 00:30 67 16 121/75 92 11/02/25 23:55 67 11/02/25 23:00 75 18 117/75 91 11/02/25 22:00 74 16 130/79 92 O2 Del Method O2 Del Method 11/03/25 07:27 Room Air 11/03/25 07:10 11/03/25 06:00 Room Air 11/03/25 04:00 Room Air 11/03/25 03:00 Room Air 11/03/25 02:00 Room Air 12/20/25 01:24 Room Air 11/03/25 00:45 Room Air 11/03/25 00:30 Room Air 11/02/25 23:55 11/02/25 23:00 Room Air 11/02/25 22:00 Room Air Diagnostic Findings X-ray right foot 3 views 11/02/2025: FINDINGS: Soft tissue gas associated with the great toe concerning for infection. No Osseous erosion or definitive findings of acute osteomyelitis. Punctate radiopaque densities overlying the medial soft tissues of the great toe could represent soft tissue calcification or foreign bodies. No acute fracture or dislocation. The joint spaces are maintained. Small plantar enthesophyte. IMPRESSION: * Soft tissue edema and soft tissue gas involving the great toe concerning for necrotizing soft tissue infection. No definite radiographic findings of acute osteomyelitis. Consider MRI for more sensitive evaluation. Electronically signed by Jaxson Moore 11-02-2025 9:06 PM MRI right foot without contrast 11/03/2025: Impression: 1. Acute osteomyelitis of the right great toe distal phalanx 2. Approximately 1.8 cm heterogeneous masslike abnormality involving the medial edge of the distal plantar fascia. 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 Soft tissue sarcoma is much less likely but cannot be excluded PG Care Time/CCT Total # of Minutes Spent Total Time Spent with Patient: Total time spent is greater than 50% in coordination of care (as documented) at patient's floor/unit and/or counseling patient: Coding Level of Care Code 84974 INT INP/OBS CARE 3/75MIN Diagnoses Diabetic ulcer of right great toe E11.621; L97.519 Osteomyelitis of great toe of right foot M86.9 CPT Codes ANIA MUSC/FASCIA 20 SQ CM/< - [id number] ([id number])
--- NOTE | 2025-11-03 09:41 | Pharmacy Report ---
Pharmacy PK ABX Note - Date of Service November 03, 2025 - Assessment and Plan Assessment * 65 year old M w hx T2DM receiving pip/tazo and vancomycin for treatment of R foot osteomyelitis (confirmed via MRI today). * SCr likely at baseline (0.44 mg/dL today) Plan Vancomycin * Loading dose: 1250 mg IV x 1 * Maintenance dose: 750 mg IV every 8 hours * Target AUC/MARKO of 400-600 mg/L.hr * Random level ordered for: 11/04 @ 0730 Pharmacy will continue to follow and will adjust dose/frequency as necessary. Thank you. Pharmacy has transitioned to AUC monitoring for vancomycin. AUC/MARKO is the preferred PK/PD target and is associated with decreased risk of nephrotoxicity compared to traditional trough targets.
--- NOTE | 2025-11-03 09:42 | Electrocardiogram Report ---
Test Reason : Blood Pressure : */* mmHG Vent. Rate : 80 BPM Atrial Rate : 80 BPM P-R Int : 162 ms QRS Dur : 66 ms QT Int : 370 ms P-R-T Axes : 63 29 69 degrees QTcB Int : 426 ms Normal sinus rhythm Normal ECG No previous ECGs available Confirmed by Darius Hardy ([id number]) on 11/03/2025 9:41:42 AM Referred By: REFERRED SELF Confirmed By: Darius Hardy
--- NOTE | 2025-11-03 09:50 | Orthopedic Consultation ---
Date of Service November 03, 2025 History of Present Illness Requesting Physician: . Attending Physician: Everardo Quintero MD . Allergies Allergy/AdvReac Type Severity Reaction Status Date / Time No Known Allergies Allergy Unverified 11/02/25 17:36 Home Medications Medication Instructions Recorded Confirmed Type naproxen sodium 220 mg tablet 220 mg PO DAILY PRN Pain 11/02/25 11/02/25 History Past Med/Surg History Problem List (Updated 11/02/25 @ 20:10 by Pj Lake MD) Unspecified open wound, right foot, initial encounter Alcohol use disorder Tobacco use disorder Diabetes mellitus type 2 in nonobese CAD (coronary artery disease) Family History (Updated 11/02/25 @ 20:08 by Pj Lake MD) Father Heart disease Diabetes Social History (Updated 11/02/25 @ 20:08 by Pj Lake MD) Smoking Status: Current every day smoker Tobacco Type: Cigarettes Hx Alcohol Use: Yes Hx Substance Use: No Preferred Language: [place] Communication Ability: Effective Internet Project Manager Required: No Beliefs That Will Affect Care: None Current Living Situation: Alone Other Information That Helps Us Care for You: No Feels Safe at Home: Yes Safety Concerns: Feels Safe At This Time Assistive Devices: None Review of Systems All systems reviewed & are unremarkable except as noted in HPI & below. Physical Exam . Results & Data Results & Data Laboratory Results . Diagnostic Findings . PG Care Time/CCT Total # of Minutes Spent Total Time Spent with Patient: Total time spent is greater than 50% in coordination of care (as documented) at patient's floor/unit and/or counseling patient: Coding
[2025-11-03] MEDS ORDERED: NICOTINE POLACRILEX 2 MG GUM MT PRN (12:08)
--- NOTE | 2025-11-03 12:13 | Hospitalist Progress Note ---
Date of Service November 03, 2025 Assessment & Plan (1) Unspecified open wound, right foot, initial encounter: Plan: Right foot wound infection Acute osteomyelitis of right great toe distal phalanx Patient presented to the hospital with wound on his right foot. Has not seen physician for several years. MRI of the foot shows acute osteomyelitis of right great toe distal phalanx. 1.8 cm heterogeneous mass involving medial edge of distal plantar fascia; plantar fibromatosis. Soft tissue sarcoma is much less likely but cannot be excluded Underwent debridement at bedside of diabetic ulceration of right great toe by podiatry on November 03, 2025 Plan for possible surgery on Wednesday. Continue on Vanco and Zosyn Will follow-up on Gram stain and culture of the wound Follow-up on blood culture Uncontrolled diabetes mellitus type 2 Currently not taking any medications ISS, basal Insulin, Accu checks, Diabetic diet Pharmacy Glycemic control consult nutrition educator consulted as well HbA1c of 10% Elevated blood pressure Likely situational Monitor Consider antihypertensives if needed Coronary artery disease S/P stent Currently not taking any medications Started on aspirin 81 mg daily also started on lipitor 40mg once a day Tobacco use disorder Currently smokes 1-1/2 to 2 packs/day Counseled to quit smoking Nicotine patch/gum Alcohol use disorder Drinks 2 shots of swathi, 2 beers on daily basis Last drink yesterday Thiamine, folic acid Counseled to quit drinking Alcohol withdrawal protocol DVT Px: Heparin SQ CODE STATUS Full code Time spent evaluating patient, direct bedside care, chart review, placing orders, interpretation of diagnostic studies, discussion with consultants, patient, and family members, as well as other required patient management activities is 50 minutes Please note the above document was generated using voice recognition software. It may contain grammatical, syntax or spelling errors. Any formal questions or concerns about the content, text or information contained within the body of this dictation should be directly addressed to the provider for clarification Admission and Anticipated Discharge Date Admission Date: November 02, 2025 Subjective Patient seen in the emergency department as well as on the floors. He is sitting up at the side of the bed; reports that he comfortable not in pain or discomfort. No fever or chills. Review of Systems Review of Systems: All systems reviewed & are unremarkable except as noted in Subjective Physical Exam Physical Exam: Physical Exam: Vitals signs as noted above General Appearance: Thin, frail, chronically appearing, no apparent distress Head: normocephalic, Atraumatic Eyes: normal inspection, EOMI Neck: supple, Trachea midline Respiratory/Chest: Normal breath sounds, CTA, No accessory muscle use Cardiovascular: S1, S2, No murmur Abdomen/GI:Soft, Non tender, Bowel sounds present Extremities/Musculoskeletal:normal inspection, 1+ B/L LE edema Neurologic/Psych:AAOX3, grossly no focal neurological deficits Skin: normal color, warm,Great toe has blackish discoloration; no ulceration on the plantar lateral aspect. Purulent discharge present. Results & Data Results & Data Vital Signs (Past 12 Hours) Vital Signs Temp Pulse Pulse Resp BP Pulse Ox Pulse Ox 11/03/25 11:00 66 22 126/80 95 11/03/25 07:27 36.9 C 78 19 135/77 94 11/03/25 07:10 67 11/03/25 06:00 67 18 123/78 93 11/03/25 04:00 67 18 126/70 94 11/03/25 03:00 70 16 109/60 92 11/03/25 02:00 69 18 123/75 91 11/03/25 01:24 69 14 113/67 91 11/03/25 00:45 92 11/03/25 00:30 67 16 121/75 92 O2 Del Method O2 Del Method 11/03/25 11:00 Room Air 11/03/25 07:27 Room Air 11/03/25 07:10 11/03/25 06:00 Room Air 11/03/25 04:00 Room Air 11/03/25 03:00 Room Air 11/03/25 02:00 Room Air 11/03/25 01:24 Room Air 11/03/25 00:45 Room Air 11/03/25 00:30 Room Air
[2025-11-03] MEDS: ATORVASTATIN 40 MG TAB PO SCH (13:54)
--- NOTE | 2025-11-03 14:17 | Pharmacy Report ---
Pharmacy Glycemic Short Note 2 - Date of Service November 03, 2025 - Glycemic Short BSG Results (Last 24 hours): 11/02/25 11/02/25 11/03/25 16:35 22:27 03:46 Glucose 322 H* 98 POC Glucose 294 H 11/03/25 11/03/25 07:23 11:12 Glucose POC Glucose 94 116 H OUTPATIENT ANTIDIABETIC REGIMEN: * none A1c = 10.6% ASSESSMENT: * 65 yo T2DM who presented for R foot wound infection. Severe hyperglycemia at presentation (BSG 322 mg/dL) which resolved quickly. Uncontrolled T2DM with A1c > 10%. Not on pharmacotherapy for DM as outpatient. * Patient appears to be insulin sensitive. BSGs of 94 and 116 mg/dL so far today. Patient received Lantus 10 units last evening and 2 units of Novolog with breakfast. Will slightly reduce Lantus dose. No changes to Novolog required at this time. PLAN FOR INPATIENT GLYCEMIC CONTROL: * Hold outpatient oral diabetes medications * Basal insulin * Lantus 8 units SQ HS * Bolus insulin * NovoLog per scale ACHS or Q6hrs while NPO * Goal Range: Low 110 mg/dL - High 140 mg/dL * Correction Factor: 50 mg/dL/unit * Nutritional / Prandial insulin per carb ratio of 1 unit per 20 grams CHO consumed
[2025-11-03] MEDS: LANTUS PER UNIT CHARGE SQ SCH (20:32)
--- NOTE | 2025-11-04 07:28 | Ultrasound Report ---
EXAM: US arterial duplex LE RT CLINICAL HISTORY: Right hallux ulcer TECHNIQUE: Real time multiple images of ultrasound arterial Doppler right lower extremities were obtained and submitted for interpretation. One or more of the following were performed- spectral analysis, resistive index, waveform analysis, and pulsed Doppler. COMPARISON: None. FINDINGS: Vessel Flow Pattern Peak Velocity (cm/sec) Common Femoral Artery (LEARNING CONSULTANT) TRI 116.7cm/s Deep Femoral Artery (DPA) TRI 42.3cm/s Superficial Femoral Artery (SFA) TRI SFA Proximal: 132.5cm/s SFA Middle: 110.6cm/s SFA Distal: 86.3cm/s Popliteal Artery (POP A) TRI proximal: 58.4cm/s distal:72.7cm/s OXYACETYLENE WELDER, proximal monophasic 550cm/s OXYACETYLENE WELDER, distal monophasic 83.4cm/s DPA Monophasic 28.1cm/s Triphasic flow visualized from the right LEARNING CONSULTANT to the Popliteal A. Mild wall thickening and some plaque seen throughout from LEARNING CONSULTANT to Pop A. Significant plaque was visualized at the right JULIA and DPA with decreased velocities. Possible stenosis visualized at the right proximal OXYACETYLENE WELDER just distal from the bifurcation from the tibioperoneal trunk with a velocity of 550cm/s. Though this could be due to tortuous/bending portion of artery. Just distal to this area the OXYACETYLENE WELDER has monophasic flow without tardus parvus with a slight increase in velocity. Normal JARROD. No significant collateral circulation noted indicative of chronic arterial occlusion. IMPRESSION: 1. Significant plaques and abnormal monophasic waveform were noted in the infrapopliteal arteries with elevated veolcity at OXYACETYLENE WELDER proximally; need for follow up with CTA if clinically warranted 2. Triphasic flow visualized from the right LEARNING CONSULTANT to the Popliteal A. Electronically signed by Carl Cagle 11-04-2025 07:27 AM
[2025-11-04 07:45] LABS: Hematocrit (blood only) 41.0 % (42.0-52.0); Hemoglobin 15.0 g/dL (14.0-18.0); Immature Granulocytes # (auto) 0.03 K/uL (0.01-0.20); Immature Granulocytes % (auto) 0.3 %; Mean Corpuscular Hemoglobin 34.0 pg (25.0-34.0); Mean Corpuscular Volume 93.0 fL (80.0-100.0); Platelet Count 221 K/uL (130-400); RDW Standard Deviation 43.7 fL (36.4-46.3); Red Blood Count 4.41 M/uL (4.70-6.10); White Blood Count 9.16 K/ul (4.8-10.8)
[2025-11-04 08:00] LABS: Anion Gap 9.0 (3-11); Blood Urea Nitrogen 8.0 mg/dl (6-23); Calcium 8.4 mg/dl (8.6-10.3); Carbon Dioxide 26.0 mmol/L (21-32); Chloride 106.0 mmol/L (98-107); Glucose 146.0 mg/dl (70-99(Fasting)); Potassium 3.2 mmol/L (3.5-5.1); Sodium 141.0 mmol/L (136-145)
--- NOTE | 2025-11-04 08:50 | Ultrasound Report ---
Clinical history: Right hallux ulcer Technique: Ankle-brachial index measurements were obtained Findings: The ankle-brachial index is within normal limits, measuring 1.08 on the right and 1.04 on the left Impression: Normal JARROD bilaterally Electronically signed by Ceasar Malhotra 11-04-2025 08:49 AM
[2025-11-04 08:59] LABS: Creatinine Clr Calc Pharmacy 92.9 ml/min
--- NOTE | 2025-11-04 10:44 | Hospitalist Progress Note ---
Date of Service November 04, 2025 Assessment & Plan (1) Unspecified open wound, right foot, initial encounter: Plan: Right foot wound infection Acute osteomyelitis of right great toe distal phalanx PAD Patient presented to the hospital with wound on his right foot. Has not seen physician for several years. MRI of the foot shows acute osteomyelitis of right great toe distal phalanx. 1.8 cm heterogeneous mass involving medial edge of distal plantar fascia; plantar fibromatosis. Soft tissue sarcoma is much less likely but cannot be excluded Underwent debridement at bedside of diabetic ulceration of right great toe by podiatry on November 03, 2025 Gram stain from 11/03 shows many gram-positive cocci. Culture is pending Blood cultures negative Continue on current antibiotics; follow-up on wound culture results Plan for possible surgery on Wednesday by podiatry. Duplex scan of lower extremity arteries show significant plaques and abnormal monophasic waveform in the infrapopliteal arteries with elevated velocity; will consult vascular surgery in a.m. for further recommendation. Continue on aspirin and Lipitor for now. Discussed smoking cessation as well. Uncontrolled diabetes mellitus type 2 Currently not taking any medications ISS, basal Insulin, Accu checks, Diabetic diet Pharmacy Glycemic control consult clinical unit educator consulted as well HbA1c of 10% Elevated blood pressure Likely situational Monitor Consider antihypertensives if needed Coronary artery disease S/P stent Currently not taking any medications Started on aspirin 81 mg daily also started on lipitor 40mg once a day Tobacco use disorder Currently smokes 1-1/2 to 2 packs/day Counseled to quit smoking Nicotine patch/gum Alcohol use disorder Drinks 2 shots of swathi, 2 beers on daily basis Last drink yesterday Thiamine, folic acid Counseled to quit drinking Alcohol withdrawal protocol DVT Px: Heparin SQ CODE STATUS Full code Time spent evaluating patient, direct bedside care, chart review, placing orders, interpretation of diagnostic studies, discussion with consultants, arielae nt, and family members, as well as other required patient management activities is 50 minutes Please note the above document was generated using voice recognition software. It may contain grammatical, syntax or spelling errors. Any formal questions or concerns about the content, text or information contained within the body of this dictation should be directly addressed to the provider for clarification Admission and Anticipated Discharge Date Admission Date: November 02, 2025 Subjective Patient seen and examined at bedside. He reports that he is feeling better. No fever or chills overnight. No significant events overnight Review of Systems Review of Systems: All systems reviewed & are unremarkable except as noted in Subjective Physical Exam Physical Exam: Physical Exam: Vitals signs as noted above General Appearance: Thin, frail, chronically appearing, no apparent distress Head: normocephalic, Atraumatic Eyes: normal inspection, EOMI Neck: supple, Trachea midline Respiratory/Chest: Normal breath sounds, CTA, No accessory muscle use Cardiovascular: S1, S2, No murmur Abdomen/GI:Soft, Non tender, Bowel sounds present Extremities/Musculoskeletal:normal inspection, 1+ B/L LE edema Neurologic/Psych:AAOX3, grossly no focal neurological deficits Skin: normal color, warm,Dressing in place over the foot. Mild soakage noted Results & Data Results & Data Vital Signs (Past 12 Hours) Vital Signs Temp Pulse Pulse Resp BP Pulse Ox O2 Del Method 11/04/25 07:18 36.4 C L 69 18 143/73 H 18 L Room Air 11/04/25 05:20 73 11/04/25 02:53 36.9 C 63 18 153/87 H 97 Room Air
--- NOTE | 2025-11-04 10:57 | Pharmacy Report ---
Pharmacy PK ABX Note - Date of Service November 04, 2025 - Assessment and Plan Assessment * 65 year old M w hx T2DM receiving pip/tazo and vancomycin for treatment of R foot osteomyelitis (confirmed via MRI). S/p debridement 11/03 by podiatry. * SCr likely at/near baseline * Random level of 19.3 mcg/mL associated with a therapeutic AUC at 24-48 hours, but will eventually be likely supratherapeutic at steady state. Will slightly decrease dose. Plan Vancomycin * Maintenance dose: decrease from 750 mg IV q8h to 1000 mg q12h * Target AUC/MARKO of 400-600 mg/L.hr * Random level ordered for: 11/06 w AM labs Pharmacy will continue to follow and will adjust dose/frequency as necessary. Thank you. Pharmacy has transitioned to AUC monitoring for vancomycin. AUC/MARKO is the preferred PK/PD target and is associated with decreased risk of nephrotoxicity c ompared to traditional trough targets.
[2025-11-04] MEDS: VANCOMYCIN LEVEL ONE (11:17)
[2025-11-04] MEDS: LANTUS PER UNIT CHARGE SQ SCH (21:06)
[2025-11-04] MEDS: VANCOMYCIN HCL / NSS 1,000 MG/270 ML BAG IV SCH (21:23)
[2025-11-05 07:04] LABS: Hematocrit (blood only) 38.1 % (42.0-52.0); Hemoglobin 13.8 g/dL (14.0-18.0); Immature Granulocytes # (auto) 0.06 K/uL (0.01-0.20); Immature Granulocytes % (auto) 0.9 %; Mean Corpuscular Hemoglobin 33.7 pg (25.0-34.0); Mean Corpuscular Volume 92.9 fL (80.0-100.0); Platelet Count 216 K/uL (130-400); RDW Standard Deviation 43.6 fL (36.4-46.3); Red Blood Count 4.10 M/uL (4.70-6.10); White Blood Count 6.70 K/ul (4.8-10.8)
[2025-11-05 07:36] LABS: Anion Gap 7.0 (3-11); Blood Urea Nitrogen 7.0 mg/dl (6-23); Calcium 8.1 mg/dl (8.6-10.3); Carbon Dioxide 27.0 mmol/L (21-32); Chloride 107.0 mmol/L (98-107); Creatinine Clr Calc Pharmacy 88.5 ml/min; Glucose 120.0 mg/dl (70-99(Fasting)); Potassium 2.7 mmol/L (3.5-5.1); Sodium 141.0 mmol/L (136-145)
--- NOTE | 2025-11-05 08:29 | Podiatry Progress Note ---
Date of Service November 05, 2025 Assessment & Plan (1) Osteomyelitis of great toe of right foot: (2) Peripheral arterial disease: (3) Diabetic ulcer of right great toe: Plan Status post bedside debridement of necrotic tissue to the right great toe 11/02/2025. Arterial duplex ultrasound and JARROD results reviewed. Patient has been evaluated vascular surgery team. Will plan to move forward with scheduled amputation and monitor wound healing closely in the postoperative setting. Will reconsult and will refer patient back to vascular surgery as needed for any wound healing complications following amputation. That said patient has a palpable dorsalis pedis pulse and blood relatively well from the debridement site which is encouraging moving into amputation of the hallux. We discussed surgical procedure for amputation of the hallux. Discussed postoperative care. I explained to patient that I believe he has adequate soft tissue to primarily close the wound and if we find that this is not the case would recommend partial first ray amputation versus leaving the wound open to heal via secondary intention and patient is in agreement with this plan. Written informed consent reviewed and signed and witnessed. All questions answered. Admission and Anticipated Discharge Date Admission Date: November 02, 2025 Subjective Patient resting comfortably in hospital bed this morning. Denies pain in the right foot. Dressing clean dry and intact to the right great toe. Review of Systems Review of Systems: Denies nausea, vomiting, fever, chills. Denies pain in the right foot. Physical Exam Physical Exam: Const: Appears well developed and well nourished. No signs of acute distress present. CV: Extremities: No cyanosis or edema. Capillary refill time is less than 2 seconds all digits of the bilateral foot. Posterior tibial and dorsalis pedis pulses are lightly palpable bilateral. Lymph: No palpable or visible regional lymphadenopathy. Skin: No scars, rashes, lesions or ecchymosis. Neuro: Loss of protective sensation in the bilateral foot Psych: Mood/Affect: Mood is normal. Affect is normal. Cognition: Orientation is intact to person, place and time. Focused lower extremity musculoskeletal exam: Skin of the bilateral foot is thin and atrophic with loss of hair growth. Erythema and edema to the right foot. Toenails are elongated and incurvated. Wound exam: Ulceration to the plantar lateral aspect of the interphalangeal joint of the right hallux. Mottled to dusky discoloration to the distal lateral hallux with mild maceration. Malodor noted. Scant purulent drainage. Diabetic ulcer subfirst metatarsal head right foot. No signs of local soft tissue infection. No active drainage. Hemorrhagic blister to the distal aspect of the dorsal right fourth toe. Results & Data Results & Data Vital Signs (Past 12 Hours) Vital Signs Temp Pulse Pulse Resp BP Pulse Ox O2 Del Method 11/05/25 07:00 36.7 C 63 16 133/86 97 Room Air 11/05/25 05:42 64 11/05/25 03:00 36.7 C 67 16 146/81 H 94 Room Air 11/04/25 22:20 36.6 C 72 16 98/61 L 96 Room Air 11/04/25 21:49 76 Diagnostic Findings Triphasic flow visualized from the right RESEARCH SOFTWARE ENGINEER to the Popliteal A. Mild wall thickening and some plaque seen throughout from RESEARCH SOFTWARE ENGINEER to Pop A. Significant plaque was visualized at the right JULIA and DPA with decreased velocities. Possible stenosis visualized at the right proximal CHEMICAL RESEARCH WORKER just distal from the bifurcation from the tibioperoneal trunk with a velocity of 550cm/s. Though this could be due to tortuous/bending portion of artery. Just distal to this area the CHEMICAL RESEARCH WORKER has monophasic flow without tardus parvus with a slight increase in velocity. Normal JARROD. No significant collateral circulation noted indicative of chronic arterial occlusion. IMPRESSION: 1. Significant plaques and abnormal monophasic waveform were noted in the infrapopliteal arteries with elevated veolcity at CHEMICAL RESEARCH WORKER proximally; need for follow up with CTA if clinically warranted 2. Triphasic flow visualized from the right RESEARCH SOFTWARE ENGINEER to the Popliteal A. Electronically signed by Carl Cagle 11-04-2025 07:27 AM Technique: Ankle-brachial index measurements were obtained Findings: The ankle-brachial index is within normal limits, measuring 1.08 on the right and 1.04 on the left Impression: Normal JARROD bilaterally MRI Right Foot: Impression: 1. Acute osteomyelitis of the right great toe distal phalanx 2. Approximately 1.8 cm heterogeneous masslike abnormality involving the medial edge of the distal plantar fascia. 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 Soft tissue sarcoma is much less likely but cannot be excluded ACT 112: Positive. There are findings on this exam that require communication between the performing entity and the patient following Patient Test Result Information Act ([place] ACT 112) guidelines. Coding Level of Care Code 86747 SUB INP/OBS CARE 2/35MIN (57 - DECISION FOR SURGERY) Diagnoses Osteomyelitis of great toe of right foot M86.9 Peripheral arterial disease I73.9 Diabetic ulcer of right great toe E11.621; L97.519
--- NOTE | 2025-11-05 08:53 | Vascular Surgery Consultation ---
<Statement entered by Aldo Glaser MD - 11/05/25 12:00> Discussed with Dr. Guadarrama (Podiatry). Will assess bleeding at time of toe amputation and make determination as to how to proceed after that. Date of Consultation November 05, 2025 Assessment & Plan (1) Osteomyelitis of great toe of right foot: debrided at bedside with plan for amputation today by Podiatry arterial duplex and ABIs reviewed. JARROD currently normal, however waveforms on duplex monophasic and there is evidence of plaque in AT and DP arteries. On exam he has faintly palpable DP and signals in DP and PT. I suspect given his history of CAD and DM that he does have tibial artery disease, however given the findings on imaging and exam, he should be able to heal his amputation. However I would have a low threshold to angio him should he have less than expected bleeding in OR or problems with wound healing. (2) Peripheral arterial disease: See above otherwise not life style limiting recommend ASA and statin (started in hospital) continuing as outpatient. History of Present Illness Reason for Consultation: PAD with right great toe ulceration and infection Requesting Physician: Dr. Quintero Attending Physician: Everardo Quintero MD History of Present Illness Mr. Anand is a pleasant 65 year old gentleman with PMHx significant for AL s/p stent placement, newly diagnosed diabetes, long standing history of tobacco use, who presented to the [facility] ED at the urging of his PCP for right toe wound with infection. He has been seen by podiatry on admission and we are being asked to see him due to imaging concerning for PAD in setting of right toe ulceration with infection. History was obtained from patient as well as medical records. Patient is unsure of exactly how long the right great toe wound has been there. The first time he noted anything on his toe was about 1 week ago and it was more of a "blister." He peeled it off his toe at that time, which he states he has a habit of doing when he notes things like this to that area. This time, however, after peeling the skin he eventually began noting increased right foot swelling, redness and pain, so he presented to his PCP for evaluation, who recommended going to ED for evaluation for infection. In the ED xrays were taken, which demonstrated soft tissue edema and soft tissue gas involving the right great toe, with MRI demonstrating acute osteomyelitis of the distal phalanx of the right great toe. He was started on IV antibiotics (Zosyn) and was seen by Dr. Guadarrama of podiatry, who debrided his toe at bedside to the level of healthy bleeding. He will need right hallux amputation vs partial first ray amputation, which is scheduled for today. Wound cultures taken during debridement are pending. Arterial duplex with ABIs were ordered in preparation for planned amputation. His ABIs were normal bilaterally, with R JARROD of 1.08, L JARROD 1.04, however duplex on the right demonstrated an area of elevated velocity in the proximal anterior tibial artery, and plaque noted in AT and DP arteries. He relates to me that he has no real trouble walking. He used to be an avid karl and could walk for a long time. He can't walk as much now, however he relates this to more difficulty climbing over branches, as he has less balance. He has no difficulty or pain with walking in stores and around his house doing his ADLs. He denies any current foot pain and overall denies any pain in his feet at night or any discoloration to his feet/toes, until this recent infection. As mentioned above he has history of AL and has a stent. He no longer is on ASA, plavix or statin medication, per his recollection, at home. He denies any history of stroke or mini stroke. He smokes 1.5-2ppd. He does not routinely follow with PCP. He is currently laid off from work. Allergies Allergy/AdvReac Type Severity Reaction Status Date / Time No Known Allergies Allergy Unverified 11/02/25 17:36 Home Medications Medication Instructions Recorded Confirmed Type naproxen sodium 220 mg tablet 220 mg PO DAILY PRN Pain 11/02/25 11/02/25 History Patient History Family History Father Heart disease Diabetes Social History Smoking Status: Current every day smoker Tobacco Type: Cigarettes Hx Alcohol Use: Yes Hx Substance Use: No Preferred Language: Amharic Communication Ability: Effective Fitness And Wellness Director Required: No Beliefs That Will Affect Care: None Current Living Situation: Alone Feels Safe at Home: Yes Assistive Devices: None Review of Systems Constitutional: denies fevers, chills, night sweats Respiratory: denies coughing, wheezing, shortness of breath Cardiovascular: Additional Comments: positive for right foot swelling, denies chest pain, palpitations Gastrointestinal: denies nausea, vomiting, diarrhea Musculoskeletal: positive for right toe wound, right 4th toe "blood blister", negative for other joint pain or joint swelling Integumentary: see above, denies any rashes or itching Neurologic: denies headaches, weakness, paresthesias Hematologic / Lymphatic: denies easy bleeding, easy bruising, blood clots Physical Exam Constitutional: WDWN, in no distress, sitting up in bed Neck: supple, trachea midline, no lymphadenopathy Respiratory: normal respiratory effort, lungs CTAB Cardiovascular: RRR, no murmurs noted no carotid bruits noted +2 radial pulses bilaterally femoral pulses palpable right DP +1, Left DP +2, right DP signal noted down to base of first toe Right PT with phasic signal. Gastrointestinal (Abdomen): non distended, soft, NTTP, no bruits noted. NABS. Skin: right foot with slight edema compared to left foot, also with erythema compared to left foot. the 4th toe on the right on the dorsal aspect a small hemorrhagic blister is noted. The right great toe with ulceration noted to plantar aspect of IP joint. No current drainage noted. Capillary refill brisk bilaterally. No wounds noted to left foot. Neurologic: no focal deficits noted, AA&O x 3 Results & Data Vital Signs (Past 12 Hours) Vital Signs Temp Pulse Pulse Resp BP Pulse Ox O2 Del Method 11/05/25 07:00 36.7 C 63 16 133/86 97 Room Air 11/05/25 05:42 64 11/05/25 03:00 36.7 C 67 16 146/81 H 94 Room Air 11/04/25 22:20 36.6 C 72 16 98/61 L 96 Room Air 11/04/25 21:49 76 Laboratory Results 11/02/25 17:00 Aerobic Blood Culture - Preliminary Blood No growth in Aerobic bottle after 48 hours. Anaerobic Blood Culture - Preliminary No growth in Anaerobic bottle after 48 hours. 11/02/25 16:35 Aerobic Blood Culture - Preliminary Blood No growth in Aerobic bottle after 48 hours. Anaerobic Blood Culture - Preliminary No growth in Anaerobic bottle after 48 hours. 11/03/25 Unknown Gram Stain - Final Toe,Right Great Aerobic and Anaerobic Culture - Preliminary Pin-point growth present, reincubating. 11/05/25 11/05/25 11/04/25 07:46 06:08 19:52 WBC 6.70 RBC 4.10 L Hgb 13.8 L Hct 38.1 L MCV 92.9 MCH 33.7 MCHC 36.2 H RDW Std Deviation 43.6 RDW Coeff of Maria Elena 12.7 Plt Count 216 MPV 10.2 Immature Gran % (Auto) 0.9 Neut % (Auto) 64.0 Lymph % (Auto) 21.6 Mcminn % (Auto) 9.4 Eos % (Auto) 3.1 Baso % (Auto) 1.0 Neut # (Auto) 4.28 Lymph # (Auto) 1.45 Mcminn # (Auto) 0.63 H Eos # (Auto) 0.21 Baso # (Auto) 0.07 Immature Gran # (Auto) 0.06 Sodium 141 Potassium 2.7 L Chloride 107 Carbon Dioxide 27 Anion Gap 7 BUN 7 Creatinine 0.62 Est Cr Clr Drug Dosing 88.5 eGFR 104.76 BUN/Creatinine Ratio 11.3 Glucose 120 H POC Glucose 123 H 240 H Calcium 8.1 L 11/04/25 11/04/25 17:05 11:55 WBC RBC Hgb Hct MCV MCH MCHC RDW Std Deviation RDW Coeff of Maria Elena Plt Count MPV Immature Gran % (Auto) Neut % (Auto) Lymph % (Auto) Mcminn % (Auto) Eos % (Auto) Baso % (Auto) Neut # (Auto) Lymph # (Auto) Mcminn # (Auto) Eos # (Auto) Baso # (Auto) Immature Gran # (Auto) Sodium Potassium Chloride Carbon Dioxide Anion Gap BUN Creatinine Est Cr Clr Drug Dosing eGFR BUN/Creatinine Ratio Glucose POC Glucose 134 H 163 H Calcium Diagnostic Findings ARTERIAL DUPLEX 11/04/25: FINDINGS: Vessel Flow Pattern Peak Velocity (cm/sec) Common Femoral Artery (RESIZER OPERATOR) TRI 116.7cm/s Deep Femoral Artery (DPA) TRI 42.3cm/s Superficial Femoral Artery (SFA) TRI SFA Proximal: 132.5cm/s SFA Middle: 110.6cm/s SFA Distal: 86.3cm/s Popliteal Artery (POP A) TRI proximal: 58.4cm/s distal:72.7cm/s GAME AND FISH PROTECTOR, proximal monophasic 550cm/s GAME AND FISH PROTECTOR, distal monophasic 83.4cm/s DPA Monophasic 28.1cm/s Triphasic flow visualized from the right RESIZER OPERATOR to the Popliteal A. Mild wall thickening and some plaque seen throughout from RESIZER OPERATOR to Pop A. Significant plaque was visualized at the right JULIA and DPA with decreased velocities. Possible stenosis visualized at the right proximal GAME AND FISH PROTECTOR just distal from the bifurcation from the tibioperoneal trunk with a velocity of 550cm/s. Though this could be due to tortuous/bending portion of artery. Just distal to this area the GAME AND FISH PROTECTOR has monophasic flow without tardus parvus with a slight increase in velocity. Normal JARROD. No significant collateral circulation noted indicative of chronic arterial occlusion. IMPRESSION: 1. Significant plaques and abnormal monophasic waveform were noted in the infrapopliteal arteries with elevated veolcity at GAME AND FISH PROTECTOR proximally; need for follow up with CTA if clinically warranted 2. Triphasic flow visualized from the right RESIZER OPERATOR to the Popliteal A. Medications Administered Home Medications Medication Instructions Recorded Confirmed Last Taken naproxen sodium 220 mg tablet 220 mg PO DAILY PRN Pain 11/02/25 11/02/25 Unknown Active Medications Generic Name Dose Route Start Last Admin Trade Name Freq PRN Reason Stop Dose Admin Aspirin 81 mg 11/02/25 22:09 11/05/25 07:41 Aspirin 81 Mg Ectab PO 12/02/25 22:08 Not Given DAILY [facility] Atorvastatin Calcium 40 mg 11/03/25 12:15 11/05/25 07:35 Atorvastatin 40 Mg Tab PO 12/03/25 12:14 40 mg QAM POORNIMA Administration Folic Acid 1 mg 11/02/25 22:09 11/05/25 07:35 Folic Acid 1 Mg Tab PO 12/02/25 22:08 1 mg QAM POORNIMA Administration Heparin Sodium (Porcine) 5,000 units 11/02/25 22:09 11/05/25 07:31 Heparin Sod 5,000 Unit/0.5 Ml Vial SQ 12/02/25 22:08 Not Given Q12 POORNIMA Piperacillin Sod/Tazobactam Sod 4.5 gm in 100 mls @ 25 mls/hr 11/03/25 00:00 11/05/25 07:38 Zosyn IV 12/15/25 00:00 25 mls/hr Q8H POORNIMA Administration Protocol Vancomycin HCl 1,000 mg in 270 mls @ 200 mls/hr 11/04/25 21:00 11/05/25 07:43 Vancomycin Hcl / Nss IV 12/16/25 20:59 200 mls/hr Q12H POORNIMA Administration Insulin Aspart 0 units 11/02/25 22:09 11/04/25 21:06 Insulin Aspart Per Unit Charge SC 12/02/25 22:08 2 units ACHS POORNIMA Administration Insulin Glargine 10 units 11/04/25 21:00 11/04/25 21:06 Lantus Per Unit Charge SQ 12/04/25 20:59 10 units HS POORNIMA Administration Miscellaneous 1 each 11/03/25 08:59 11/05/25 07:35 Remove Nicoderm Patch N/A 12/03/25 08:58 1 each DAILY@0859 POORNIMA Administration Nicotine 1 patch 11/02/25 22:09 11/05/25 07:36 Nicotine 21 Mg/24 Hr Tdsy TD 12/02/25 22:08 1 patch QAM POORNIMA Administration Thiamine HCl 100 mg 11/02/25 22:09 11/05/25 07:35 Thiamine Hcl 100 Mg Tab PO 12/02/25 22:08 100 mg QAM POORNIMA Administration PG Care Time/CCT Total # of Minutes Spent Total Time Spent with Patient: Total time spent is greater than 50% in coordination of care (as documented) at patient's floor/unit and/or counseling patient: [place] [address] INT INP/OBS CARE 2/55MIN Patient Type New History Detailed Exam Detailed Medical Decision Making Moderate Complexity Diagnoses Osteomyelitis of great toe of right foot M86.9 Peripheral arterial disease I73.9
--- NOTE | 2025-11-05 10:53 | Pharmacy Report ---
Pharmacy Glycemic Short Note 2 - Date of Service November 05, 2025 - Glycemic Short BSG Results (Last 24 hours): 11/04/25 11/04/25 11/04/25 11:55 17:05 19:52 Glucose POC Glucose 163 H 134 H 240 H 11/05/25 11/05/25 06:08 07:46 Glucose 120 H POC Glucose 123 H OUTPATIENT ANTIDIABETIC REGIMEN: * none A1c = 10.6% ASSESSMENT: 11/05: * BSGs 634-271-289sq/dL the last 24h. Received 10 units of basal and 15 units of bolus insulin yesterday. * Tolerating diet, continues IV antibiotics. * Continue Lantus 10 units HS. Novolog tightened to 40/13 for improved prandial coverage. 11/03: * 65 yo T2DM who presented for R foot wound infection. Severe hyperglycemia at presentation (BSG 322 mg/dL) which resolved quickly. Uncontrolled T2DM with A1c > 10%. Not on pharmacotherapy for DM as outpatient. * Patient appears to be insulin sensitive. BSGs of 94 and 116 mg/dL so far today. Patient received Lantus 10 units last evening and 2 units of Novolog with breakfast. Will slightly reduce Lantus dose. No changes to Novolog required at this time. PLAN FOR INPATIENT GLYCEMIC CONTROL: * Hold outpatient oral diabetes medications * Basal insulin * Lantus 10 units SQ HS * Bolus insulin * NovoLog per scale ACHS or Q6hrs while NPO * Goal Range: Low 110 mg/dL - High 140 mg/dL * Correction Factor: 40 mg/dL/unit * Nutritional / Prandial insulin per carb ratio of 1 unit per 13 grams CHO consumed
[2025-11-05] MEDS: LACTATED RINGER'S 1,000 ML IV SCH (11:28)
--- NOTE | 2025-11-05 11:56 | Hospitalist Progress Note ---
Date of Service November 05, 2025 Assessment & Plan (1) Unspecified open wound, right foot, initial encounter: Plan: Right foot wound infection Acute osteomyelitis of right great toe distal phalanx PAD Patient presented to the hospital with wound on his right foot. Has not seen physician for several years. MRI of the foot shows acute osteomyelitis of right great toe distal phalanx. 1.8 cm heterogeneous mass involving medial edge of distal plantar fascia; plantar fibromatosis. Soft tissue sarcoma is much less likely but cannot be excluded Underwent debridement at bedside of diabetic ulceration of right great toe by podiatry on November 03, 2025 Gram stain from 11/03 shows many gram-positive cocci. Culture is pending Blood cultures negative Continue on current antibiotics; follow-up on wound culture results Plan for surgery today.If source control is achieved with amputation; we will likely do 1 week of oral antibiotic at discharge. Vascular surgery was consulted for peripheral artery disease; do not recommend intervention at this time. Low threshold to angiogram should he have less than expected bleeding in OR or problems with wound healing. Continue on aspirin and Lipitor Uncontrolled diabetes mellitus type 2 Currently not taking any medications ISS, basal Insulin, Accu checks, Diabetic diet Pharmacy Glycemic control consult health promotion educator consulted; appreciate recommendations HbA1c of 10% Elevated blood pressure Likely situational Monitor Consider antihypertensives if needed Coronary artery disease S/P stent Currently not taking any medications Started on aspirin 81 mg daily also started on lipitor 40mg once a day Tobacco use disorder Currently smokes 1-1/2 to 2 packs/day Counseled to quit smoking Nicotine patch/gum Alcohol use disorder Drinks 2 shots of swathi, 2 beers on daily basis Last drink yesterday Thiamine, folic acid Counseled to quit drinking Alcohol withdrawal protocol DVT Px: Heparin SQ CODE STATUS Full code Time spent evaluating patient, direct bedside care, chart review, placing orders, interpretation of diagnostic studies, discussion with consultants, patient, and family members, as well as other required patient management activities is 50 minutes Please note the above document was generated using voice recognition software. It may contain grammatical, syntax or spelling errors. Any formal questions or concerns about the content, text or information contained within the body of this dictation should be directly addressed to the provider for clarification Admission and Anticipated Discharge Date Admission Date: November 02, 2025 Subjective Patient seen and examined at bedside. Comfortable; not in distress. Denies fever, chills, chest pain, shortness of breath, abdominal pain or urinary symptoms. No significant overnight events Review of Systems Review of Systems: All systems reviewed & are unremarkable except as noted in Subjective Physical Exam Physical Exam: Physical Exam: Vitals signs as noted above General Appearance: Thin, frail, chronically appearing, no apparent distress Respiratory/Chest: Normal breath sounds, CTA, No accessory muscle use Cardiovascular: S1, S2, No murmur Abdomen/GI:Soft, Non tender, Bowel sounds present Extremities/Musculoskeletal:normal inspection, 1+ B/L LE edema Neurologic/Psych:AAOX3, grossly no focal neurological deficits Skin: normal color, warm,Dressing in place over the foot. Mild soakage noted Results & Data Results & Data Vital Signs (Past 12 Hours) Vital Signs Temp Pulse Pulse Resp BP Pulse Ox O2 Del Method 11/05/25 10:59 36.4 C L 20 144/87 H 96 Room Air 11/05/25 07:00 36.7 C 63 16 133/86 97 Room Air 11/05/25 05:42 64 11/05/25 03:00 36.7 C 67 16 146/81 H 94 Room Air
[2025-11-05] MEDS ORDERED: LIDOCAINE 2% 2 ML VIAL/AMP(20MG/ML) INFIL ONE (12:44)
[2025-11-05] MEDS ORDERED: PROPOFOL IV EMULSION 10 MG/ML 20 ML VIAL IV ONE (12:44)
[2025-11-05] MEDS ORDERED: MIDAZOLAM HCL 1 MG/ML 2ML VIAL ONE (12:45)
--- NOTE | 2025-11-05 13:11 | Operative Report ---
PG Post Operative Report Pre & Post Diagnosis Operation Date: 11/05/25 07:00 Osteomyelitis distal phalanx right great toe Diabetic ulcer right great toe I identified the patient and participated in the time-out.: Yes Procedure Operation Date: 11/05/25 07:00 Right hallux amputation Surgeon Jarett Guadarrama DPM Electrical High Tension Tester None Findings Consistent with Post-Op Diagnosis Specimens Pathology: -Proximal margin proximal phalanx right hallux -Right hallux Microbiology: Deep soft tissue and bone culture right hallux Indications Patient presents to [facility] emergency department on 11/01/2025 with infected right great toe wound. Plain film radiographs showing soft tissue emphysema to the distal toe. MRI consistent with osteomyelitis to the distal phalanx. Patient underwent bedside debride I attest to the content of the Intraoperative Record and any orders documented therein. Any exceptions are noted below.
--- NOTE | 2025-11-05 13:14 | Communication Note ---
Date of Service: November 05, 2025 Pt presented for surgery w K 2.7. Please correct hypokalemia prior to surgery.
[2025-11-05] MEDS: POTASSIUM CHLORIDE CRTAB 20 MEQ TABCR PO SCH (13:45)
[2025-11-05] MEDS: POTASSIUM CHLORIDE / WTR 10 MEQ/100 ML PLCT IV SCH (13:49)
[2025-11-05] MEDS: BUPIVACAINE 0.5 % 5 MG/1 ML MPF 30ML VIAL ONE (14:14)
[2025-11-05] MEDS: VANCOMYCIN HCL 1000MG/20ML VIAL ONE (14:14)
[2025-11-05 22:47] LABS: Anion Gap 6.0 (3-11); Blood Urea Nitrogen 7.0 mg/dl (6-23); Calcium 7.9 mg/dl (8.6-10.3); Carbon Dioxide 23.0 mmol/L (21-32); Chloride 107.0 mmol/L (98-107); Creatinine Clr Calc Pharmacy 75.2 ml/min; Glucose 257.0 mg/dl (70-99(Fasting)); Potassium 3.7 mmol/L (3.5-5.1); Sodium 136.0 mmol/L (136-145)
[2025-11-06] MEDS ORDERED: Nursing to Pharmacy Communication SCH (05:45)
[2025-11-06] MEDS: INSULIN ASPART PER UNIT CHARGE SC SCH (05:51)
[2025-11-06 07:08] LABS: Anion Gap 7.0 (3-11); Blood Urea Nitrogen 7.0 mg/dl (6-23); Calcium 8.2 mg/dl (8.6-10.3); Carbon Dioxide 24.0 mmol/L (21-32); Chloride 108.0 mmol/L (98-107); Creatinine Clr Calc Pharmacy 64.7 ml/min; Glucose 220.0 mg/dl (70-99(Fasting)); Potassium 3.9 mmol/L (3.5-5.1); Sodium 139.0 mmol/L (136-145)
[2025-11-06] MEDS ORDERED: VANCOMYCIN LEVEL ONE (08:30)
--- NOTE | 2025-11-06 08:46 | Pharmacy Report ---
Pharmacy PK ABX Note - Date of Service November 06, 2025 - Assessment and Plan Assessment 11/06: * Day #5 vancomycin + zosyn for right great toe osteomyelitis. S/p bedside debridement by podiatry on 11/03. Prelim toe culture (+) Strep canis pending sensitivities. Plan for OR for amputation today. 11/03: * 65 year old M w hx T2DM receiving pip/tazo and vancomycin for treatment of R foot osteomyelitis (confirmed via MRI). S/p debridement 11/03 by podiatry. * SCr likely at/near baseline * Random level of 19.3 mcg/mL associated with a therapeutic AUC at 24-48 hours, but will eventually be likely supratherapeutic at steady state. Will slightly decrease dose. Plan Vancomycin * Current regimen: vancomycin 1gm IV q12h * Random level this AM (~9h level), 17.7mcg/mL, predicted to achieve ssAUC 675mg/L.hr - supratherapeutic. * Decrease dose to 750mg IV q12h. Predicted to achieve ssAUC 508mg/L.hr. * Repeat level in ~48h if vancomycin continued. Pharmacy will continue to follow and will adjust dose/frequency as necessary. Thank you. Pharmacy has transitioned to AUC monitoring for vancomycin. AUC/MARKO is the preferred PK/PD target and is associated with decreased risk of nephrotoxicity compared to traditional trough targets.
--- NOTE | 2025-11-06 09:06 | Vascular Surgery Progress Note ---
Date of Service November 06, 2025 Assessment & Plan (1) Osteomyelitis of great toe of right foot: Plan: right hallux amputation planned for today with podiatry. arterial duplex and ABIs reviewed. JARROD currently normal, however waveforms on duplex monophasic and there is evidence of plaque in AT and DP arteries. On exam he has faintly palpable DP and signals in DP and PT. I suspect given his history of CAD and DM that he does have tibial artery disease, however given the findings on imaging and exam, he should be able to heal his amputation. However I would have a low threshold to angio him should he have less than expected bleeding in OR or problems with wound healing. (2) Peripheral arterial disease: Plan: See above otherwise not life style limiting recommend ASA and statin (started in hospital) continuing as outpatient. Admission and Anticipated Discharge Date Admission Date: November 02, 2025 Subjective Doing well this morning. Amputation moved from yesterday to today. No complaints, no foot pain. Wound cultures currently growing strep canis. Physical Exam Physical Exam: WDWN, in no distress, sitting up in bed right foot continues with edema and erythema, slightly improved from yesterday. 4th digit with hemorrhagic blister, size same as yesterday. Right great toe currently with dressing in place. Right DP and PT palpable. Results & Data Vital Signs (Past 12 Hours) Vital Signs Temp Pulse Pulse Resp BP Pulse Ox O2 Del Method 11/06/25 07:41 37.2 C 65 18 128/77 97 Room Air 11/06/25 05:35 66 11/06/25 03:18 36.8 C 60 12 119/75 98 Room Air 11/05/25 22:46 36.3 C L 71 12 103/66 96 Room Air 11/05/25 21:46 70 Laboratory Results 11/03/25 Unknown Gram Stain - Final Toe,Right Great Aerobic and Anaerobic Culture - Preliminary Streptococcus canis 11/06/25 11/06/25 11/05/25 05:54 05:46 20:19 Sodium 139 Potassium 3.9 Chloride 108 H Carbon Dioxide 24 Anion Gap 7 BUN 7 Creatinine 0.86 Est Cr Clr Drug Dosing 64.7 eGFR 94.90 BUN/Creatinine Ratio 8.1 L Glucose 220 H POC Glucose 233 H 252 H Calcium 8.2 L Random Vancomycin 17.7 11/05/25 11/05/25 11/05/25 20:10 16:13 11:01 Sodium 136 Potassium 3.7 D Chloride 107 Carbon Dioxide 23 Anion Gap 6 BUN 7 Creatinine 0.73 Est Cr Clr Drug Dosing 75.2 eGFR 99.72 BUN/Creatinine Ratio 9.6 L Glucose 257 H POC Glucose 169 H 113 H Calcium 7.9 L Random Vancomycin PG Care Time/CCT Total # of Minutes Spent Total Time Spent with Patient: Total time spent is greater than 50% in coordination of care (as documented) at patient's floor/unit and/or counseling patient:
[2025-11-06] MEDS: VANCOMYCIN 750 MG in SODIUM CHLORIDE 0.9% 250 ML IV SCH (09:30)
--- NOTE | 2025-11-06 12:02 | Pharmacy Report ---
Pharmacy Glycemic Short Note 2 - Date of Service November 06, 2025 - Glycemic Short BSG Results (Last 24 hours): 11/05/25 11/05/25 11/05/25 16:13 20:10 20:19 Glucose 257 H POC Glucose 169 H 252 H 11/06/25 11/06/25 11/06/25 05:46 05:54 11:43 Glucose 220 H POC Glucose 233 H 136 H OUTPATIENT ANTIDIABETIC REGIMEN: * none A1c = 10.6% ASSESSMENT: 11/06: * BSGs [phone]/dL the last 24h. Received 10 units of basal and 7 units of bolus insulin yesterday. * NPO for OR today. Continues on antibiotics. * Will continue Lantus 10 units HS for now. Fasting BSG elevated this AM however inconsistent with last several days. Reassess need to titrate tomorrow. Novolog tightened given brittney/HS hyperglycemia. 11/05: * BSGs 083-112-769jk/dL the last 24h. Received 10 units of basal and 15 units of bolus insulin yesterday. * Tolerating diet, continues IV antibiotics. * Continue Lantus 10 units HS. Novolog tightened to 40/13 for improved prandial coverage. 11/03: * 65 yo T2DM who presented for R foot wound infection. Severe hyperglycemia at presentation (BSG 322 mg/dL) which resolved quickly. Uncontrolled T2DM with A1c > 10%. Not on pharmacotherapy for DM as outpatient. * Patient appears to be insulin sensitive. BSGs of 94 and 116 mg/dL so far today. Patient received Lantus 10 units last evening and 2 units of Novolog with breakfast. Will slightly reduce Lantus dose. No changes to Novolog required at this time. PLAN FOR INPATIENT GLYCEMIC CONTROL: * Hold outpatient oral diabetes medications * Basal insulin * Lantus 10 units SQ HS * Bolus insulin * NovoLog per scale ACHS or Q6hrs while NPO * Goal Range: Low 110 mg/dL - High 140 mg/dL * Correction Factor: 35 mg/dL/unit * Nutritional / Prandial insulin per carb ratio of 1 unit per 12 grams CHO consumed
--- NOTE | 2025-11-06 14:05 | Anesthesiology Consultation ---
Date of Service November 06, 2025 Assessment & Plan (1) Encounter for pre-operative examination: Chart Review Chart Review: Acceptable Risk for Surgery History Surgery Operation Date: 11/05/25 07:00 Proposed Procedures p Right Hallux Amputation, Possible [facility] - Jarett Guadarrama DPM Operation Date: 11/06/25 07:00 Proposed Procedures p Right Hallux Amputation, Possible First Ray - Jarett Guadarrama DPM Height/Weight Height: 5 ft 8 in Weight: 54.885 kg Allergies Allergy/AdvReac Type Severity Reaction Status Date / Time No Known Allergies Allergy Unverified 11/02/25 17:36 Medications Home Medications Medication Instructions Recorded Confirmed Last Taken naproxen sodium 220 mg tablet 220 mg PO DAILY PRN Pain 11/02/25 11/02/25 Unknown Active Medications Generic Name Dose Route Start Last Admin Trade Name Freq PRN Reason Stop Dose Admin Aspirin 81 mg 11/02/25 22:09 11/06/25 08:13 Aspirin 81 Mg Ectab PO 12/02/25 22:08 81 mg DAILY POORNIMA Administration Atorvastatin Calcium 40 mg 11/03/25 12:15 11/06/25 08:12 Atorvastatin 40 Mg Tab PO 12/03/25 12:14 40 mg QAM POORNIMA Administration Folic Acid 1 mg 11/02/25 22:09 11/06/25 08:12 Folic Acid 1 Mg Tab PO 12/02/25 22:08 1 mg QAM POORNIMA Administration Heparin Sodium (Porcine) 5,000 units 11/02/25 22:09 11/05/25 20:20 Heparin Sod 5,000 Unit/0.5 Ml Vial SQ 12/02/25 22:08 Not Given Q12 POORNIMA Piperacillin Sod/Tazobactam Sod 4.5 gm in 100 mls @ 25 mls/hr 11/03/25 00:00 11/06/25 12:32 Zosyn IV 12/15/25 00:00 Infused Q8H POORNIMA Infusion Protocol Lactated Ringer's 1,000 mls @ 15 mls/hr 11/05/25 11:30 11/06/25 11:08 Lr IV 11/08/25 11:29 15 mls/hr .Q24H POORNIMA Administration Vancomycin HCl 750 mg/ Sodium 265 mls @ 200 mls/hr 11/06/25 10:00 11/06/25 11:02 Chloride IV 12/16/25 20:59 Infused Q12H POORNIMA Infusion Insulin Aspart 0 units 11/06/25 06:00 11/06/25 11:46 Insulin Aspart Per Unit Charge SC 12/06/25 05:59 Not Given Q6 POORNIMA Insulin Glargine 10 units 11/04/25 21:00 11/05/25 20:34 Lantus Per Unit Charge SQ 12/04/25 20:59 10 units HS POORNIMA Administration Miscellaneous 1 each 11/03/25 08:59 11/06/25 08:13 Remove Nicoderm Patch N/A 12/03/25 08:58 1 each DAILY@0859 POORNIMA Administration Nicotine 1 patch 11/02/25 22:09 11/06/25 08:12 Nicotine 21 Mg/24 Hr Tdsy TD 12/02/25 22:08 1 patch QAM POORNIMA Administration Thiamine HCl 100 mg 11/02/25 22:09 11/06/25 08:13 Thiamine Hcl 100 Mg Tab PO 12/02/25 22:08 100 mg QAM POORNIMA Administration NPO Date Last Intake of Fluids: 11/04/25 Time Last Intake of Fluids: 23:00 Date Last Intake of Solids: 11/04/25 Time Last Intake of Solids: 20:00 Past Medical History Medical History (Updated 11/06/25 @ 14:11 by Danny Blackwood MD) Diabetes mellitus type 2 in nonobese CAD (coronary artery disease) Alcohol use disorder Diabetic ulcer of right great toe Peripheral arterial disease Past Family History Family History Father Heart disease Diabetes Past Surgical History Surgical History (Updated 11/06/25 @ 14:09 by Danny Blackwood MD) Hx of heart artery stent Social History Smoking Status: Current every day smoker Hx Alcohol Use: Yes Hx Substance Use: No substance use type: does not use Physical Exam Vital Signs Last Vital Signs Temp 36.6 C 11/06/25 11:24 Pulse 67 11/06/25 11:24 Resp 18 11/06/25 11:24 BP 150/82 H 11/06/25 11:24 Pulse Ox 98 11/06/25 11:24 O2 Del Method Room Air 11/06/25 11:24 Testing Laboratory Results 11/05/25 06:08 11/06/25 05:54 PT 10.9 Seconds (9.0-12.0) 11/02/25 16:35 INR 1.0 (0.9-1.1) 11/02/25 16:35 APTT 26 Seconds (21-31) 11/02/25 16:35 Hemoglobin A1c 10.6 % (4.5-5.6) H 11/03/25 03:46 Urine Color Yellow 11/03/25 09:04 Urine Appearance Clear (Clear) 11/03/25 09:04 Urine pH 6.0 (4.5-7.5) 11/03/25 09:04 Ur Specific [place] 1.020 (1.000-1.030) 11/03/25 09:04 Urine Protein Negative (Negative) 11/03/25 09:04 Urine Glucose (UA) 3+ (Negative) H 11/03/25 09:04 Urine Ketones Negative (Negative) 11/03/25 09:04 Urine Nitrite Negative (Negative) 11/03/25 09:04 Ur Leukocyte Esterase Negative (Negative) 11/03/25 09:04 11/03/25 Unknown Gram Stain - Final Toe,Right Great Aerobic and Anaerobic Culture - Preliminary Streptococcus canis Anaerococcus vaginalis 11/02/25 17:00 Aerobic Blood Culture - Preliminary Blood No growth in Aerobic bottle after 48 hours. Anaerobic Blood Culture - Preliminary No growth in Anaerobic bottle after 48 hours. 11/02/25 16:35 Aerobic Blood Culture - Preliminary Blood No growth in Aerobic bottle after 48 hours. Anaerobic Blood Culture - Preliminary No growth in Anaerobic bottle after 48 hours. 11/06/25 11/06/25 11/06/25 12:09 11:43 05:46 POC Glucose 148 H 136 H 233 H Electrocardiogram Date: 11/02/25 Findings: + NSR @ (80)
[2025-11-06] MEDS ORDERED: MIDAZOLAM HCL 1 MG/ML 2ML VIAL ONE (15:23)
[2025-11-06] MEDS ORDERED: LIDOCAINE 2% 2 ML VIAL/AMP(20MG/ML) INFIL ONE (15:23)
[2025-11-06] MEDS ORDERED: PROPOFOL IV EMULSION 10 MG/ML 20 ML VIAL IV ONE (15:23)
--- NOTE | 2025-11-06 15:31 | Hospitalist Progress Note ---
Date of Service November 06, 2025 Assessment & Plan (1) Unspecified open wound, right foot, initial encounter: Plan: Right foot wound infection Acute osteomyelitis of right great toe distal phalanx PAD Patient presented to the hospital with wound on his right foot. Has not seen physician for several years. MRI of the foot shows acute osteomyelitis of right great toe distal phalanx. 1.8 cm heterogeneous mass involving medial edge of distal plantar fascia; plantar fibromatosis. Soft tissue sarcoma is much less likely but cannot be excluded Underwent debridement at bedside of diabetic ulceration of right great toe by podiatry on November 03, 202511/03 Wound Cx: Strep canis, Anaerococcus vaginalis Blood cultures negative x 48 hrs Continue zosyn and vanc 11/02 Plan for surgery today. If source control is achieved with amputation; we will likely do 1 week of oral antibiotic at discharge. Vascular surgery was consulted for peripheral artery disease; do not recommend intervention at this time. Low threshold to angiogram should he have less than expected bleeding in OR or problems with wound healing. Continue on aspirin and Lipitor Uncontrolled diabetes mellitus type 2 Currently not taking any medications ISS, basal Insulin, Accu checks, Diabetic diet Pharmacy Glycemic control consult director of research consulted; appreciate recommendations HbA1c of 10% Plan for long acting insuslin and metformin will further d/w pt. Elevated blood pressure: Likely situational, monitor, now better. Coronary artery disease S/P stent : Currently not taking any medications, was started on aspirin and atorvastatin this admission. continue. Tobacco use disorder Currently smokes 1-1/2 to 2 packs/day Counseled to quit smoking Nicotine patch/gum Alcohol use disorder Drinks 2 shots of swathi, 2 beers on daily basis Last drink the day before presentation. Thiamine, folic acid Counseled to quit drinking Alcohol withdrawal protocol DVT Px: Heparin SQ CODE STATUS: Full code Please note the above document was generated using voice recognition software. It may contain grammatical, syntax or spelling errors. Any formal questions or concerns about the content, text or information contained within the body of this dictation should be directly addressed to the provider for clarification Admission and Anticipated Discharge Date Admission Date: November 02, 2025 Subjective Patient seen and examined at bedside. Comfortable; not in distress. Denies fever, chills, chest pain, shortness of breath, abdominal pain or urinary symptoms. No significant overnight events Physical Exam Physical Exam: General Appearance: Thin, frail, chronically ill appearing, no apparent distress Respiratory/Chest: Normal breath sounds, CTA, No accessory muscle use Cardiovascular: S1, S2, No murmur Abdomen/GI:Soft, Non tender, Bowel sounds present Extremities/Musculoskeletal:normal inspection, no B/L LE edema Neurologic/Psych:AAOX3, grossly no focal neurological deficits Skin: normal color, warm,Dressing in place over the foot. No soakage noted Results & Data Results & Data Vital Signs (Past 12 Hours) Vital Signs Temp Pulse Pulse Resp BP Pulse Ox O2 Del Method 11/06/25 15:20 36.6 C 63 18 147/82 H 96 Room Air 11/06/25 15:06 36.8 C 64 18 137/80 98 Room Air 11/06/25 14:39 61 11/06/25 11:24 36.6 C 67 18 150/82 H 98 Room Air 11/06/25 07:41 37.2 C 65 18 128/77 97 Room Air 11/06/25 05:35 66
--- NOTE | 2025-11-06 15:35 | History & Physical Bridge Note ---
Date of Service November 06, 2025 History & Physical Bridge Note I have examined the patient, reviewed the History & Physical and in the interval since the performance of the History & Physical I have noted the following changes of clinical significance: hypokalemia resolved at 3.9 today.
[2025-11-06] MEDS ORDERED: ONDANSETRON INJ 2 MG/ML 2 ML VIAL IV PRN (15:38)
[2025-11-06] MEDS ORDERED: ATROPINE SULFATE 0.1 MG/ML 10ML SYR IV PRN (15:38)
[2025-11-06] MEDS ORDERED: PROMETHAZINE HCL 6.25 MG in SODIUM CHLORIDE 0.9% 50 ML IV PRN (15:38)
--- NOTE | 2025-11-06 15:50 | Operative Report ---
PG Post Operative Report Pre & Post Diagnosis Operation Date: 11/06/25 07:00 Diabetic ulcer right great toe Osteomyelitis distal phalanx right great toe I identified the patient and participated in the time-out.: Yes Procedure Operation Date: 11/06/25 07:00 Amputation right hallux Surgeon Jarett Guadarrama DPM [employer] None Estimated Blood Loss 10 Findings Consistent with Post-Op Diagnosis Specimens Pathology: - Proximal margin proximal phalanx right great toe - Right great toe Microbiology: - Deep tissue culture right great toe Drains None Indications Patient presents to [facility] with diabetic ulcer to the right great toe. Plain film radiographs showing soft tissue emphysema to the distal aspect of the toe at the location of ulceration. Extensive bedside debridement in the emergency department is effective at removing all necrotic soft tissue from the great toe. MRI consistent with osteomyelitis to the distal phalanx of the right great toe. Plan for amputation right great toe. Plan to evaluate perfusion to the amputation site intraoperatively. With any concern for bleeding at the amputation site intraoperatively or with poor wound healing will reconsult to refer to vascular surgery as needed. Description of Procedure Patient brought the operating room and left on the litter for amputation. Timeout held confirm correct patient, site, site, procedure with all necessary parties confirming. Sedation is administered by the anesthesia team. The right lower extremity scrubbed prepped and draped in the usual aseptic fashion to the level of the ankle. Repeat timeout confirming correct patient, side, site, procedure on x-ray parties confirming. Attention is directed to the right hallux which has a large open wound to the plantar distal aspect of the toe extending to the level of the distal phalanx. A fishmouth shaped incision is planned about the base of the hallux. 15 blade utilized to create an incision was carried deep to the level of bone of the proximal phalanx. Hallux is disarticulated at the metatarsophalangeal joint. Sagittal saw was utilized to resect proximal margin for pathology from the base of the proximal phalanx. Rongeur was utilized to collect bone and soft tissue for culture from the base of the wound. Remainder of the hallux is sent for gross pathologic analysis. Bleeding within the amputation site is evaluated patient is noted to have bleeding in 4 quadrants of the amputation requiring electrocautery of plantar arteries and direct pressure for hemostasis. Bleeding is assumed to be reasonable for adequate healing potential. Will continue to monitor healing of the amputation site closely and refer to vascular surgery as needed if there is any complication. Wound is flushed with copious amounts normal sterile saline. Wound edges were reapproximated and closed with 4-0 nylon suture in simple interrupted suturing technique. Foot is cleansed with normal sterile saline dried and dressed with Betadine soaked Adaptic 4 x 4 fluff gauze ABD pad x 3 Nik and a lightly applied Eros bandage total dressings in place. Patient tolerated the procedure and anesthesia well. He is transferred to recovery room with vital signs stable and vascular status intact all remaining digits of the right foot. Following a brief period of postoperative monitoring the recovery room patient is transferred back to his bed on the floor for ongoing IV antibiotics and medical management as we await culture and sensitivity results. I attest to the content of the Intraoperative Record and any orders documented therein. Any exceptions are noted below.
[2025-11-06] MEDS ORDERED: KETAMINE HCL 10MG/ML SYR ONE (16:00)
[2025-11-06] MEDS ORDERED: ePHEDrine sulfate 50 MG/5 ML SYR ONE (16:11)
[2025-11-06] MEDS: VANCOMYCIN HCL 1000MG/20ML VIAL ONE (16:18)
--- NOTE | 2025-11-06 18:50 | Anesthesiology Progress Note ---
Date of Service November 06, 2025 Anesthesia Post Procedure Vital Signs Vital Signs: Temp Pulse Pulse Pulse Resp BP BP 11/06/25 18:24 36.5 C 73 16 129/72 11/06/25 17:44 36.4 C L 64 17 150/80 H 11/06/25 17:11 36.5 C 73 18 129/72 11/06/25 16:55 36.5 C 61 20 164/86 H 11/06/25 16:45 61 20 164/77 H 11/06/25 16:35 36.0 C L 67 19 147/82 H 11/06/25 15:20 36.6 C 63 18 147/82 H 11/06/25 15:06 36.8 C 64 18 137/80 11/06/25 14:39 61 11/06/25 11:24 36.6 C 67 18 150/82 H 11/06/25 07:41 37.2 C 65 18 128/77 11/06/25 05:35 66 11/06/25 03:18 36.8 C 60 12 119/75 11/05/25 22:46 36.3 C L 71 12 103/66 11/05/25 21:46 70 11/05/25 19:13 36.7 C 75 12 107/65 Pulse Ox O2 Del Method 11/06/25 18:24 99 Room Air 11/06/25 17:44 96 Room Air 11/06/25 17:11 99 Room Air 11/06/25 16:55 95 Room Air 11/06/25 16:45 97 Room Air 11/06/25 16:35 96 Room Air 11/06/25 15:20 96 Room Air 11/06/25 15:06 98 Room Air 11/06/25 14:39 11/06/25 11:24 98 Room Air 11/06/25 07:41 97 Room Air 11/06/25 05:35 11/06/25 03:18 98 Room Air 11/05/25 22:46 96 Room Air 11/05/25 21:46 11/05/25 19:13 95 Room Air Transfer of Care Handoff Completed per policy Notes Mental Status: alert / awake / arousable Patient Amnestic to Procedure: Yes Nausea / Vomiting: adequately controlled Pain: adequately controlled Airway Patency, RR, SpO2: stable & adequate BP & HR: stable & adequate Hydration State: stable & adequate Anesthetic Complications: no major complications apparent
[2025-11-07] MEDS ORDERED: Nursing to Pharmacy Communication SCH (00:30)
[2025-11-07 07:21] LABS: Hematocrit (blood only) 40.5 % (42.0-52.0); Hemoglobin 14.4 g/dL (14.0-18.0); Mean Corpuscular Hemoglobin 33.8 pg (25.0-34.0); Mean Corpuscular Volume 95.1 fL (80.0-100.0); Platelet Count 207 K/uL (130-400); RDW Standard Deviation 47.0 fL (36.4-46.3); Red Blood Count 4.26 M/uL (4.70-6.10); White Blood Count 10.35 K/ul (4.8-10.8)
[2025-11-07 08:26] LABS: Anion Gap 7.0 (3-11); Blood Urea Nitrogen 8.0 mg/dl (6-23); Calcium 8.2 mg/dl (8.6-10.3); Carbon Dioxide 22.0 mmol/L (21-32); Chloride 112.0 mmol/L (98-107); Creatinine Clr Calc Pharmacy 54.4 ml/min; Glucose 268.0 mg/dl (70-99(Fasting)); Magnesium 1.8 mg/dl (1.7-2.4); Potassium 4.1 mmol/L (3.5-5.1); Sodium 141.0 mmol/L (136-145)
--- NOTE | 2025-11-07 08:45 | Vascular Surgery Progress Note ---
Date of Service November 07, 2025 Assessment & Plan (1) Osteomyelitis of great toe of right foot: Plan: He is now POD 1 s/p right hallux amputation, with adequate bleeding in the OR. No need for further vascular surgery procedures at this time, however should he have poor wound healing on follow up, we can set patient up for outpatient angiogram to assess his tibial vessels further. Continue wound care per podiatry and close follow up with Dr. Guadarrama as ou tpatient to assess amputation site. Offload with boot per podiatry instructions. Again discussed with Mr. Anand that doing this will be cisneros for the site healing well. (2) Peripheral arterial disease: Plan: See above otherwise not life style limiting recommend ASA and statin (started in hospital) continuing as outpatient. Follow up with vascular surgery as needed. Admission and Anticipated Discharge Date Admission Date: November 02, 2025 Subjective He is s/p right hallux amputation yesterday and feels good today, with no complaints of pain. In the OR he had good bleeding in all 4 quadrants of am putation site. He denies any fevers or chills. Initial wound cultures that were taken bedside on admission growing strep canis and anaerococcus vaginalis. Cultures from OR pending. He has no leukocytosis. Physical Exam Physical Exam: WDWN, in no distress, sitting up in bed right foot dressing in place. + palpable PT. Results & Data Vital Signs (Past 12 Hours) Vital Signs Temp Pulse Pulse Resp BP BP Pulse Ox 11/07/25 08:33 37.0 C 66 18 168/72 H 97 11/07/25 05:55 65 11/07/25 04:03 36.8 C 76 18 132/78 96 11/06/25 23:45 36.3 C L 64 18 160/82 H 95 11/06/25 22:08 63 11/06/25 21:07 36.4 C L 55 L 18 150/80 H 96 O2 Del Method 11/07/25 08:33 Room Air 11/07/25 05:55 11/07/25 04:03 Room Air 11/06/25 23:45 Room Air 11/06/25 22:08 11/06/25 21:07 Room Air Laboratory Results 11/06/25 Unknown Gram Stain - Final Toe,Right Great Aerobic and Anaerobic Culture - Pending 11/03/25 Unknown Gram Stain - Final Toe,Right Great Aerobic and Anaerobic Culture - Preliminary Streptococcus canis Anaerococcus vaginalis 11/07/25 11/07/25 11/06/25 08:19 06:52 23:24 WBC 10.35 RBC 4.26 L Hgb 14.4 Hct 40.5 L MCV 95.1 MCH 33.8 MCHC 35.6 RDW Std Deviation 47.0 H RDW Coeff of Maria Elena 13.3 Plt Count 207 MPV 9.9 Sodium 141 Potassium 4.1 Chloride 112 H Carbon Dioxide 22 Anion Gap 7 BUN 8 Creatinine 1.03 Est Cr Clr Drug Dosing 54.4 eGFR 79.62 BUN/Creatinine Ratio 7.8 L Glucose 268 H POC Glucose 247 H 112 H Calcium 8.2 L Phosphorus 3.4 Magnesium 1.8 11/06/25 11/06/25 11/06/25 20:23 17:42 16:36 WBC RBC Hgb Hct MCV MCH MCHC RDW Std Deviation RDW Coeff of Maria Elena Plt Count MPV Sodium Potassium Chloride Carbon Dioxide Anion Gap BUN Creatinine Est Cr Clr Drug Dosing eGFR BUN/Creatinine Ratio Glucose POC Glucose 130 H 143 H 155 H Calcium Phosphorus Magnesium 11/06/25 11/06/25 12:09 11:43 WBC RBC Hgb Hct MCV MCH MCHC RDW Std Deviation RDW Coeff of Maria Elena Plt Count MPV Sodium Potassium Chloride Carbon Dioxide Anion Gap BUN Creatinine Est Cr Clr Drug Dosing eGFR BUN/Creatinine Ratio Glucose POC Glucose 148 H 136 H Calcium Phosphorus Magnesium Medications Administered Home Medications Medication Instructions Recorded Confirmed Last Taken naproxen sodium 220 mg tablet 220 mg PO DAILY PRN Pain 11/02/25 11/02/25 Unknown Active Medications Generic Name Dose Route Start Last Admin Trade Name Choloq PRN Reason Stop Dose Admin Aspirin 81 mg 11/02/25 22:09 11/07/25 09:07 Aspirin 81 Mg Ectab PO 12/02/25 22:08 81 mg DAILY POORNIMA Administration Atorvastatin Calcium 40 mg 11/03/25 12:15 11/06/25 08:12 Atorvastatin 40 Mg Tab PO 12/03/25 12:14 40 mg QAM POORNIMA Administration Folic Acid 1 mg 11/02/25 22:09 11/06/25 08:12 Folic Acid 1 Mg Tab PO 12/02/25 22:08 1 mg QAM POORNIMA Administration Heparin Sodium (Porcine) 5,000 units 11/02/25 22:09 11/05/25 20:20 Heparin Sod 5,000 Unit/0.5 Ml Vial SQ 12/02/25 22:08 Not Given Q12 POORNIMA Piperacillin Sod/Tazobactam Sod 4.5 gm in 100 mls @ 25 mls/hr 11/03/25 00:00 11/07/25 09:05 Zosyn IV 12/15/25 00:00 25 mls/hr Q8H POORNIMA Administration Protocol Lactated Ringer's 1,000 mls @ 15 mls/hr 11/05/25 11:30 11/06/25 11:08 Lr IV 11/08/25 11:29 15 mls/hr .Q24H POORNIMA Administration Vancomycin HCl 750 mg/ Sodium 265 mls @ 200 mls/hr 11/06/25 10:00 11/07/25 09:03 Chloride IV 12/16/25 20:59 200 mls/hr Q12H POORNIMA Administration Insulin Aspart 0 units 11/07/25 07:30 11/07/25 09:01 Insulin Aspart Per Unit Charge SC 12/07/25 07:29 7 units ACHS POORNIMA Administration Miscellaneous 1 each 11/03/25 08:59 11/06/25 08:13 Remove Nicoderm Patch N/A 12/03/25 08:58 1 each DAILY@0859 POORNIMA Administration Nicotine 1 patch 11/02/25 22:09 11/07/25 09:07 Nicotine 21 Mg/24 Hr Tdsy TD 12/02/25 22:08 1 patch QAM POORNIMA Administration Thiamine HCl 100 mg 11/02/25 22:09 11/06/25 08:13 Thiamine Hcl 100 Mg Tab PO 12/02/25 22:08 100 mg QAM POORNIMA Administration PG Care Time/CCT Total # of Minutes Spent Total Time Spent with Patient: Total time spent is greater than 50% in coordination of care (as documented) at patient's floor/unit and/or counseling patient:
[2025-11-07] MEDS: INSULIN ASPART PER UNIT CHARGE SC SCH (09:01)
[2025-11-07] MEDS: LANTUS PER UNIT CHARGE SC SCH ×2 (10:00→10:21)
[2025-11-07] MEDS: INSULIN GLARGINE 100 UNIT/ML VIAL SC SCH (10:18)
--- NOTE | 2025-11-07 11:26 | Pharmacy Report ---
Pharmacy Glycemic Short Note 2 - Date of Service November 07, 2025 - Glycemic Short BSG Results (Last 24 hours): 11/06/25 11/06/25 11/06/25 11:43 12:09 16:36 Glucose POC Glucose 136 H 148 H 155 H 11/06/25 11/06/25 11/06/25 17:42 20:23 23:24 Glucose POC Glucose 143 H 130 H 112 H 11/07/25 11/07/25 06:52 08:19 Glucose 268 H POC Glucose 247 H OUTPATIENT ANTIDIABETIC REGIMEN: * none A1c = 10.6% ASSESSMENT: 11/07: * POD 1 s/p amputation R hallux. Diet resumed. * AM BSG elevated at 247 mg/dL, but this is up from 112 mg/dL at midnight. Suspect snacking overnight due to the increase plus prior report of overnight snacking. Will therefore not react to the 247 mg/dL for now. Will split Lantus BID (since not on basal as an outpatient) and dose based on BSG * Will loosen Novolog slightly as the tighter regimen may no longer be needed. Will still be slightly tighter than weight-based moderate stress estimate and would like to avoid hypoglycemia. Will however add in overnight checks, but only if the patient wants to eat. Otherwise, no need to check BSG, provide insulin, or wake the patient up if he doesn't want to snack overnight. 11/06: * BSGs [phone]/dL the last 24h. Received 10 units of basal and 7 units of bolus insulin yesterday. * NPO for OR today. Continues on antibiotics. * Will continue Lantus 10 units HS for now. Fasting BSG elevated this AM however inconsistent with last several days. Reassess need to titrate tomorrow. Novolog tightened given brittney/HS hyperglycemia. 11/05: * BSGs 391-174-104kd/dL the last 24h. Received 10 units of basal and 15 units of bolus insulin yesterday. * Tolerating diet, continues IV antibiotics. * Continue Lantus 10 units HS. Novolog tightened to 40/13 for improved prandial coverage. 11/03: * 65 yo T2DM who presented for R foot wound infection. Severe hyperglycemia at presentation (BSG 322 mg/dL) which resolved quickly. Uncontrolled T2DM with A1c > 10%. Not on pharmacotherapy for DM as outpatient. * Patient appears to be insulin sensitive. BSGs of 94 and 116 mg/dL so far today. Patient received Lantus 10 units last evening and 2 units of Novolog with breakfast. Will slightly reduce Lantus dose. No changes to Novolog required at this time. PLAN FOR INPATIENT GLYCEMIC CONTROL: * Basal insulin * Lantus 5 units SQ BID (hold for BSG less than 120 mg/dL) * Bolus insulin * NovoLog per scale ACHS or Q6hrs while NPO * Goal Range: Low 110 mg/dL - High 140 mg/dL * Correction Factor: 40 mg/dL/unit * Nutritional / Prandial insulin per carb ratio of 1 unit per 13 grams CHO consumed
[2025-11-07] MEDS: LANTUS PER UNIT CHARGE SC ONE (13:21)
--- NOTE | 2025-11-07 14:30 | Hospitalist Progress Note ---
Date of Service November 07, 2025 Assessment & Plan (1) Unspecified open wound, right foot, initial encounter: Plan: Right foot wound infection Acute osteomyelitis of right great toe distal phalanx PAD Patient presented to the hospital with wound on his right foot. Has not seen physician for several years. MRI of the foot shows acute osteomyelitis of right great toe distal phalanx. 1.8 cm heterogeneous mass involving medial edge of distal plantar fascia; plantar fibromatosis. Soft tissue sarcoma is much less likely but cannot be excluded Underwent debridement at bedside of diabetic ulceration of right great toe by podiatry on November 03, 202511/03 Wound Cx: Strep canis, Anaerococcus vaginalis Blood cultures negative x 48 hrs Discussed with podiatry 11/07, postoperatively the margins were healthy and okay for de-escalation of antibiotics to short term oral course. zosyn 11/02 and vanc 11/02 --> s/p Right hallux amputation 11/06 --> de- escalation to Augmentin 11/07, plan for 1 week of antibiotic. Follow-up on operative culture and pathology. Vascular surgery was consulted for peripheral artery disease; do not recommend intervention at this time. Continue on aspirin and Lipitor Uncontrolled diabetes mellitus type 2 Currently not taking any medications ISS, basal Insulin, Accu checks, Diabetic diet Pharmacy Glycemic control consult wire twister consulted; appreciate recommendations HbA1c of 10% Plan for long acting insulin and metformin - pt agreeable after discussing side effect profile. Elevated blood pressure: Likely situational, monitor, now better. Coronary artery disease S/P stent : Currently not taking any medications, was started on aspirin and atorvastatin this admission. continue. Tobacco use disorder Currently smokes 1-1/2 to 2 packs/day Counseled to quit smoking Nicotine patch/gum Alcohol use disorder Drinks 2 shots of swathi, 2 beers on daily basis Last drink the day before presentation. Thiamine, folic acid Counseled to quit drinking s/p Alcohol withdrawal protocol DVT Px: Heparin SQ CODE STATUS: Full code Please note the above document was generated using voice recognition software. It may contain grammatical, syntax or spelling errors. Any formal questions or concerns about the content, text or information contained within the body of this dictation should be directly addressed to the provider for clarification Admission and Anticipated Discharge Date Admission Date: November 02, 2025 Subjective Patient was seen and examined at bedside. Patient is status post right hallux amputation 11/06. Patient reports operative site pain under control, denies any other complaints. Patient reports eating okay. Physical Exam Physical Exam: General Appearance: Thin, frail, chronically ill appearing, no apparent distress Respiratory/Chest: Normal breath sounds, CTA, No accessory muscle use Cardiovascular: S1, S2, No murmur Abdomen/GI:Soft, Non tender, Bowel sounds present Extremities/Musculoskeletal:normal inspection, no B/L LE edema Neurologic/Psych:AAOX3, grossly no focal neurological deficits Skin: normal color, warm,Dressing in place over the foot. No soakage noted Results & Data Results & Data Vital Signs (Past 12 Hours) Vital Signs Temp Pulse Pulse Resp BP BP Pulse Ox 11/07/25 13:58 79 11/07/25 11:50 36.8 C 75 18 127/77 98 11/07/25 08:33 37.0 C 66 18 168/72 H 97 11/07/25 05:55 65 11/07/25 04:03 36.8 C 76 18 132/78 96 O2 Del Method 11/07/25 13:58 11/07/25 11:50 Room Air 11/07/25 08:33 Room Air 11/07/25 05:55 11/07/25 04:03 Room Air
--- NOTE | 2025-11-07 14:32 | Podiatry Progress Note ---
Date of Service November 07, 2025 Assessment & Plan (1) Osteomyelitis of great toe of right foot: (2) Peripheral arterial disease: (3) Diabetic ulcer of right great toe: Plan Postop day 1 status post right hallux amputation: - Dressing changed in aseptic fashion. Wound edges well-approximated and all sutures intact. Capillary refill time to the amputation stump is less than 2 seconds. No signs of ischemia or wound dehiscence at this point. Persistent erythema and edema. - Okay to continue weightbearing for short distance and transfer in [facility] boot to the right foot. - Dressing change once daily with dry sterile dressing while patient remains in the hospital. At time of discharge patient will be allowed to leave dressing clean dry and intact until follow-up. - Intraoperative wound culture collected from the base of the wound following debridement with pinpoint growth being reintubated. - Intraoperative proximal margin pathology pending - Proximal margin was obtained from the proximal one third of the proximal phalanx of the hallux. Clinically healthy appearing margin with healthy bleeding soft tissue at the level of amputation no signs of necrosis or nonviable tissue. Proximal margin was also a reasonable distance from the MRI confirmed level of osteomyelitis in the distal phalanx to assume high probability of clean bony surgical margin. Okay from podiatry standpoint to transition to p.o. antibiotics with coverage based off of 11/03/2025 culture. Admission and Anticipated Discharge Date Admission Date: November 02, 2025 Subjective Postop day 1 status post right hallux amputation. Patient sitting on the edge of hospital bed eating lunch at time of visit today. Denies pain to the right foot. Has been fit with cam walker and reports using at all times while ambulating. Review of Systems Review of Systems: Denies nausea, vomiting, fever, chills, shortness of breath, chest pain. Denies pain in the right foot. Physical Exam Physical Exam: Const: Appears well developed and well nourished. No signs of acute distress present. CV: Extremities: No cyanosis or edema. Capillary refill time is less than 2 seconds all digits of the bilateral foot. Posterior tibial and dorsalis pedis pulses are lightly palpable bilateral. Lymph: No palpable or visible regional lymphadenopathy. Skin: No scars, rashes, lesions or ecchymosis. Neuro: Loss of protective sensation in the bilateral foot Psych: Mood/Affect: Mood is normal. Affect is normal. Cognition: Orientation is intact to person, place and time. Focused lower extremity musculoskeletal exam: Skin of the bilateral foot is thin and atrophic with loss of hair growth. Erythema and edema to the right foot. Toenails are elongated and incurvated. Wound exam: Postop day 1 status post right hallux amputation. Sutures intact. Persistent erythema and edema to the right medial forefoot and hallux remnant. Scant sanguinous drainage to dressing and dried sanguinous drainage along the incision line. Diabetic ulcer subfirst metatarsal head right foot. Now epithelialized. No signs of local soft tissue infection. No active drainage. Hemorrhagic blister to the distal aspect of the dorsal right fourth toe. Results & Data Results & Data Vital Signs (Past 12 Hours) Vital Signs Temp Pulse Pulse Resp BP BP Pulse Ox 11/07/25 11:50 36.8 C 75 18 127/77 98 11/07/25 08:33 37.0 C 66 18 168/72 H 97 11/07/25 05:55 65 11/07/25 04:03 36.8 C 76 18 132/78 96 O2 Del Method 11/07/25 11:50 Room Air 11/07/25 08:33 Room Air 11/07/25 05:55 11/07/25 04:03 Room Air Coding Level of Care Code 51537 SUB INP/OBS CARE 235MIN Diagnoses Osteomyelitis of great toe of right foot M86.9 Peripheral arterial disease I73.9 Diabetic ulcer of right great toe E11.621; L97.519
[2025-11-07] MEDS: AMOXICILLIN/CLAVULANATE 875 MG TAB PO SCH (16:40)
[2025-11-08] MEDS: INSULIN ASPART PER UNIT CHARGE SC SCH (00:07)
[2025-11-08 07:33] LABS: Hematocrit (blood only) 37.8 % (42.0-52.0); Hemoglobin 13.2 g/dL (14.0-18.0); Mean Corpuscular Hemoglobin 33.3 pg (25.0-34.0); Mean Corpuscular Volume 95.5 fL (80.0-100.0); Platelet Count 199 K/uL (130-400); RDW Standard Deviation 47.1 fL (36.4-46.3); Red Blood Count 3.96 M/uL (4.70-6.10); White Blood Count 7.94 K/ul (4.8-10.8)
[2025-11-08 07:47] LABS: Anion Gap 4.0 (3-11); Blood Urea Nitrogen 10.0 mg/dl (6-23); Calcium 8.5 mg/dl (8.6-10.3); Carbon Dioxide 27.0 mmol/L (21-32); Chloride 112.0 mmol/L (98-107); Creatinine Clr Calc Pharmacy 53.9 ml/min; Glucose 145.0 mg/dl (70-99(Fasting)); Potassium 3.9 mmol/L (3.5-5.1); Sodium 143.0 mmol/L (136-145)
[2025-11-08] MEDS: LANTUS PER UNIT CHARGE SC SCH (08:42)
--- NOTE | 2025-11-08 12:55 | Hospitalist Progress Note ---
Date of Service November 08, 2025 Assessment & Plan (1) Unspecified open wound, right foot, initial encounter: Plan: Right foot wound infection Acute osteomyelitis of right great toe distal phalanx PAD Patient presented to the hospital with wound on his right foot. Has not seen physician for several years. MRI of the foot shows acute osteomyelitis of right great toe distal phalanx. 1.8 cm heterogeneous mass involving medial edge of distal plantar fascia; plantar fibromatosis. Soft tissue sarcoma is much less likely but cannot be excluded Underwent debridement at bedside of diabetic ulceration of right great toe by podiatry on November 03, 202511/03 Wound Cx: Strep canis, Anaerococcus vaginalis Blood cultures negative x 48 hrs Discussed with podiatry 11/07, postoperatively the margins were healthy and okay for de-escalation of antibiotics to short term oral course. zosyn 11/02 and vanc 11/02 --> s/p Right hallux amputation 11/06 --> de- escalation to Augmentin 11/07, plan for 1 week of antibiotic. Follow-up on operative culture and pathology. Operative culture w/ staph aureus follow on final sensitivity Vascular surgery was consulted for peripheral artery disease; do not recommend intervention at this time. Continue on aspirin and Lipitor Uncontrolled diabetes mellitus type 2 Currently not taking any medications ISS, basal Insulin, Accu checks, Diabetic diet Pharmacy Glycemic control consult radio survey worker consulted; appreciate recommendations HbA1c of 10% Plan for long acting insulin and metformin - pt agreeable after discussing side effect profile. Elevated blood pressure: Likely situational, monitor, now better. Coronary artery disease S/P stent : Currently not taking any medications, was started on aspirin and atorvastatin this admission. continue. Tobacco use disorder Currently smokes 1-1/2 to 2 packs/day Counseled to quit smoking Nicotine patch/gum Alcohol use disorder Drinks 2 shots of swathi, 2 beers on daily basis Last drink the day before presentation. Thiamine, folic acid Counseled to quit drinking s/p Alcohol withdrawal protocol DVT Px: Heparin SQ CODE STATUS: Full code Dispo: once sensitivity on operative culture results. Please note the above document was generated using voice recognition software. It may contain grammatical, syntax or spelling errors. Any formal questions or concerns about the content, text or information contained within the body of this dictation should be directly addressed to the provider for clarification Admission and Anticipated Discharge Date Admission Date: November 02, 2025 Subjective Patient was seen and examined at bedside. Patient is status post right hallux amputation 11/06. Patient reports operative site pain under control, denies any other complaints. Patient reports eating okay. Physical Exam Physical Exam: General Appearance: Thin, frail, chronically ill appearing, no apparent distress Respiratory/Chest: Normal breath sounds, CTA, No accessory muscle use Cardiovascular: S1, S2, No murmur Abdomen/GI:Soft, Non tender, Bowel sounds present Extremities/Musculoskeletal:normal inspection, no B/L LE edema Neurologic/Psych:AAOX3, grossly no focal neurological deficits Skin: normal color, warm,Dressing in place over the foot. No soakage noted Results & Data Results & Data Vital Signs (Past 12 Hours) Vital Signs Temp Pulse Pulse Resp BP Pulse Ox O2 Del Method 11/08/25 11:07 36.6 C 79 18 153/96 H 99 Room Air 11/08/25 08:09 65 11/08/25 07:54 37.1 C 76 18 168/97 H 96 Room Air 11/08/25 03:50 36.9 C 63 16 157/86 H 99 Room Air
[2025-11-09] MEDS ORDERED: VANCOMYCIN LEVEL ONE ×2 (06:30→08:30)
[2025-11-09 07:08] LABS: Hematocrit (blood only) 37.7 % (42.0-52.0); Hemoglobin 13.4 g/dL (14.0-18.0); Mean Corpuscular Hemoglobin 33.9 pg (25.0-34.0); Mean Corpuscular Volume 95.4 fL (80.0-100.0); Platelet Count 204 K/uL (130-400); RDW Standard Deviation 47.2 fL (36.4-46.3); Red Blood Count 3.95 M/uL (4.70-6.10); White Blood Count 7.81 K/ul (4.8-10.8)
[2025-11-09 07:22] LABS: Creatinine Clr Calc Pharmacy 52.0 ml/min
[2025-11-09] MEDS: LANTUS PER UNIT CHARGE SC SCH (10:23)
--- NOTE | 2025-11-09 12:09 | Podiatry Progress Note ---
Date of Service November 09, 2025 Assessment & Plan (1) Osteomyelitis of great toe of right foot: (2) Peripheral arterial disease: (3) Diabetic ulcer of right great toe: Plan Postop day 3 status post right hallux amputation: - Dressing changed in aseptic fashion. Wound edges well-approximated and all sutures intact. Capillary refill time to the amputation stump is less than 2 seconds. No signs of ischemia or wound dehiscence at this point. Persistent erythema and edema. - Okay to continue weightbearing for short distance and transfer in [facility] boot to the right foot. - Dressing change once daily with dry sterile dressing while patient remains in the hospital. At time of discharge patient will be allowed to leave dressing clean dry and intact until follow-up. - Intraoperative wound culture: Staph aureus - Intraoperative proximal margin pathology pending. - Proximal margin was obtained from the proximal one third of the proximal phalanx of the hallux. Clinically healthy appearing margin with healthy bleeding soft tissue at the level of amputation no signs of necrosis or nonviable tissue. Proximal margin was also a reasonable distance from the MRI confirmed level of osteomyelitis in the distal phalanx to assume high probability of clean bony surgical margin. Okay from podiatry standpoint to transition to p.o. antibiotics with coverage based off of 11/03/2025 culture. Amputation site is looking much healthier today with decreased erythema and edema. Wound edges are well-approximated with all sutures intact. No signs of dehiscence or active drainage. Patient okay for discharge from podiatry standpoint with transition to p.o. antibiotics for another week. Should schedule to follow-up in the diabetic foot clinic within 2 weeks of discharge for suture removal and reevaluation of amputation site. Admission and Anticipated Discharge Date Admission Date: November 02, 2025 Subjective Patient resting comfortably in hospital bed eating lunch. Denies pain in the right foot. Dressing remains clean dry and intact from 11/07/2025. Review of Systems Review of Systems: Denies nausea, vomiting, fever, chills, shortness of breath, chest pain. Denies pain in the right foot. Physical Exam Physical Exam: Const: Appears well developed and well nourished. No signs of acute distress present. CV: Extremities: No cyanosis or edema. Capillary refill time is less than 2 seconds all digits of the bilateral foot. Posterior tibial and dorsalis pedis pulses are lightly palpable bilateral. Lymph: No palpable or visible regional lymphadenopathy. Skin: No scars, rashes, lesions or ecchymosis. Neuro: Loss of protective sensation in the bilateral foot Psych: Mood/Affect: Mood is normal. Affect is normal. Cognition: Orientation is intact to person, place and time. Focused lower extremity musculoskeletal exam: Skin of the bilateral foot is thin and atrophic with loss of hair growth. Erythema and edema to the right foot. Toenails are elongated and incurvated. Wound exam: Postop day 3 status post right hallux amputation. Wound edges remain well-approximated with all sutures intact. Decreased erythema and edema. No signs of dehiscence. Capillary refill time to the wound edges remains intact approximately 2 seconds. No signs of ischemia. Diabetic ulcer subfirst metatarsal head right foot. Now epithelialized. No signs of local soft tissue infection. No active drainage. Hemorrhagic blister to the distal aspect of the dorsal right fourth toe. Results & Data Results & Data Vital Signs (Past 12 Hours) Vital Signs Temp Pulse Pulse Resp BP Pulse Ox O2 Del Method 11/09/25 11:38 36.7 C 98 H 18 125/81 98 Room Air 11/09/25 07:22 36.9 C 76 18 149/84 H 95 Room Air 11/09/25 05:41 66 11/09/25 03:41 36.9 C 64 18 147/84 H 96 Room Air Coding Level of Care Code 98569 SUB INP/OBS CARE 2/35MIN Diagnoses Osteomyelitis of great toe of right foot M86.9 Peripheral arterial disease I73.9 Diabetic ulcer of right great toe E11.621; L97.519
--- NOTE | 2025-11-09 12:58 | Pharmacy Report ---
Pharmacy Glycemic Short Note 2 - Date of Service November 09, 2025 - Glycemic Short BSG Results (Last 24 hours): 11/08/25 11/08/25 11/09/25 17:19 20:08 07:51 POC Glucose 212 H 137 H 141 H 11/09/25 11:58 POC Glucose 277 H OUTPATIENT ANTIDIABETIC REGIMEN: * none A1c = 10.6% ASSESSMENT: 11/09/25: * Blood sugars elevated yesterday, ranging 137-227 mg/dL * Received 34 units of insulin (10 units of basal, 24 units of bolus) * Fasting blood sugar remains mildly elevated at 141 mg/dL this morning * Will increase basal today and tighten Novolog parameters * Plan is for discharge with once daily basal insulin regimen 11/07: * POD 1 s/p amputation R hallux. Diet resumed. * AM BSG elevated at 247 mg/dL, but this is up from 112 mg/dL at midnight. Suspect snacking overnight due to the increase plus prior report of overnight snacking. Will therefore not react to the 247 mg/dL for now. Will split Lantus BID (since not on basal as an outpatient) and dose based on BSG * Will loosen Novolog slightly as the tighter regimen may no longer be needed. Will still be slightly tighter than weight-based moderate stress estimate and would like to avoid hypoglycemia. Will however add in overnight checks, but only if the patient wants to eat. Otherwise, no need to check BSG, provide insulin, or wake the patient up if he doesn't want to snack overnight. 11/06: * BSGs [id number]/dL the last 24h. Received 10 units of basal and 7 units of bolus insulin yesterday. * NPO for OR today. Continues on antibiotics. * Will continue Lantus 10 units HS for now. Fasting BSG elevated this AM however inconsistent with last several days. Reassess need to titrate tomorrow. Novolog tightened given brittney/HS hyperglycemia. 11/05: * BSGs [phone]/dL the last 24h. Received 10 units of basal and 15 units of bolus insulin yesterday. * Tolerating diet, continues IV antibiotics. * Continue Lantus 10 units HS. Novolog tightened to 40/13 for improved prandial coverage. 11/03: * 65 yo T2DM who presented for R foot wound infection. Severe hyperglycemia at presentation (BSG 322 mg/dL) which resolved quickly. Uncontrolled T2DM with A1c > 10%. Not on pharmacotherapy for DM as outpatient. * Patient appears to be insulin sensitive. BSGs of 94 and 116 mg/dL so far today. Patient received Lantus 10 units last evening and 2 units of Novolog with breakfast. Will slightly reduce Lantus dose. No changes to Novolog required at this time. PLAN FOR INPATIENT GLYCEMIC CONTROL: * Basal insulin - 20% increase * Lantus 12 units SC daily * Bolus insulin * NovoLog per scale ACHS or Q6hrs while NPO * Goal Range: Low 110 mg/dL - High 140 mg/dL * Correction Factor: 30 mg/dL/unit * Nutritional / Prandial insulin per carb ratio of 1 unit per 10 grams CHO consumed
--- NOTE | 2025-11-09 15:19 | Hospitalist Progress Note ---
Date of Service November 09, 2025 Assessment & Plan (1) Unspecified open wound, right foot, initial encounter: Plan: Right foot wound infection Acute osteomyelitis of right great toe distal phalanx PAD Patient presented to the hospital with wound on his right foot. Has not seen physician for several years. MRI of the foot shows acute osteomyelitis of right great toe distal phalanx. 1.8 cm heterogeneous mass involving medial edge of distal plantar fascia; plantar fibromatosis. Soft tissue sarcoma is much less likely but cannot be excluded Underwent debridement at bedside of diabetic ulceration of right great toe by podiatry on November 03, 202511/03 Wound Cx: Strep canis, Anaerococcus vaginalis Blood cultures negative x 48 hrs Discussed with podiatry 11/07, postoperatively the margins were healthy and okay for de-escalation of antibiotics to short term oral course. zosyn 11/02 and vanc 11/02 --> s/p Right hallux amputation 11/06 --> de- escalation to Augmentin 11/07, plan for 1 week of antibiotic. Follow-up on operative culture and pathology. Operative culture w/ staph aureus follow on final sensitivity. Operative Path result on proximal margin free of OM. Vascular surgery was consulted for peripheral artery disease; do not recommend intervention at this time. Continue on aspirin and Lipitor f/u w/ podiatry in 1-2 weeks of dc. Uncontrolled diabetes mellitus type 2 Currently not taking any medications ISS, basal Insulin, Accu checks, Diabetic diet Pharmacy Glycemic control consult manager business operations consulted; appreciate recommendations HbA1c of 10% Plan for long acting insulin and metformin - pt agreeable after discussing side effect profile. Elevated blood pressure: Likely situational, monitor, now better. Coronary artery disease S/P stent : Currently not taking any medications, was started on aspirin and atorvastatin this admission. continue. Tobacco use disorder Currently smokes 1-1/2 to 2 packs/day Counseled to quit smoking Nicotine patch/gum Alcohol use disorder Drinks 2 shots of swathi, 2 beers on daily basis Last drink the day before presentation. Thiamine, folic acid Counseled to quit drinking s/p Alcohol withdrawal protocol DVT Px: Heparin SQ CODE STATUS: Full code Dispo: once sensitivity on operative culture results. Please note the above document was generated using voice recognition software. It may contain grammatical, syntax or spelling errors. Any formal questions or concerns about the content, text or information contained within the body of this dictation should be directly addressed to the provider for clarification Admission and Anticipated Discharge Date Admission Date: November 02, 2025 Subjective Patient resting comfortably in hospital bed eating lunch. Denies pain in the right foot. Dressing remains clean dry and intact from 11/07/2025. Physical Exam Physical Exam: General Appearance: Thin, frail, chronically ill appearing, no apparent distress Respiratory/Chest: Normal breath sounds, CTA, No accessory muscle use Cardiovascular: S1, S2, No murmur Abdomen/GI:Soft, Non tender, Bowel sounds present Extremities/Musculoskeletal:normal inspection, no B/L LE edema Neurologic/Psych:AAOX3, grossly no focal neurological deficits Skin: normal color, warm,Dressing in place over the foot. No soakage noted Results & Data Results & Data Vital Signs (Past 12 Hours) Vital Signs Temp Pulse Pulse Resp BP Pulse Ox O2 Del Method 11/09/25 15:10 37.1 C 65 18 129/84 94 Room Air 11/09/25 13:30 78 11/09/25 11:38 36.7 C 98 H 18 125/81 98 Room Air 11/09/25 07:22 36.9 C 76 18 149/84 H 95 Room Air 11/09/25 05:41 66 11/09/25 03:41 36.9 C 64 18 147/84 H 96 Room Air
[2025-11-10 06:42] LABS: Hematocrit (blood only) 39.2 % (42.0-52.0); Hemoglobin 13.4 g/dL (14.0-18.0); Mean Corpuscular Hemoglobin 32.6 pg (25.0-34.0); Mean Corpuscular Volume 95.4 fL (80.0-100.0); Platelet Count 222 K/uL (130-400); RDW Standard Deviation 47.2 fL (36.4-46.3); Red Blood Count 4.11 M/uL (4.70-6.10); White Blood Count 7.07 K/ul (4.8-10.8)
[2025-11-10 07:12] LABS: Anion Gap 8.0 (3-11); Blood Urea Nitrogen 15.0 mg/dl (6-23); Calcium 8.6 mg/dl (8.6-10.3); Carbon Dioxide 23.0 mmol/L (21-32); Chloride 111.0 mmol/L (98-107); Creatinine Clr Calc Pharmacy 54.7 ml/min; Glucose 149.0 mg/dl (70-99(Fasting)); Potassium 3.6 mmol/L (3.5-5.1); Sodium 142.0 mmol/L (136-145)
--- NOTE | 2025-11-10 10:48 | Discharge Summary ---
Date of Service November 10, 2025 Admission HPI Per Admitting Provider Patient is a 65-year-old male with history of coronary artery disease S/P stent, diabetes mellitus type 2, tobacco use disorder, alcohol use disorder and no other significant past medical history presents with history of worsening right foot infection. Patient states that he has not seen a physician for about 5 years. Currently he does not take any medications. States that he noticed to develop blister on right foot about 1 week ago which she peeled off the skin. Since then, patient had worsening right foot swelling, redness, pain and so visited PCP today who recommended to go to ED for further evaluation. Denies any trauma, insect bite. Denies any history of chest pain, dyspnea, fever, chills, headache, focal weakness, numbness, nausea, vomiting, abdominal pain, diarrhea, dysuria. Admission Exam Per Admitting Provider General Appearance: Thin, frail, chronically appearing, no apparent distress Head: normocephalic, Atraumatic Eyes: normal inspection, EOMI Neck: supple, Trachea midline Respiratory/Chest: Normal breath sounds, CTA, No accessory muscle use Cardiovascular: S1, S2, No murmur Abdomen/GI:Soft, Non tender, Bowel sounds present Extremities/Musculoskeletal:normal inspection, 1+ B/L LE edema Neurologic/Psych:AAOX3, grossly no focal neurological deficits Skin: normal color, warm,+ Right great toe plantar wound/Necrotic Principal Diagnosis Right foot wound infection Acute osteomyelitis of right great toe distal phalanx PAD Discharge Exam General Appearance: Thin, frail, chronically ill appearing, no apparent distress Respiratory/Chest: Normal breath sounds, CTA, No accessory muscle use Cardiovascular: S1, S2, No murmur Abdomen/GI:Soft, Non tender, Bowel sounds present Extremities/Musculoskeletal:normal inspection, no B/L LE edema Neurologic/Psych:AAOX3, grossly no focal neurological deficits Skin: normal color, warm,Dressing in place over the foot. No soakage noted Discharge Data Allergies Allergy/AdvReac Type Severity Reaction Status Date / Time No Known Allergies Allergy Unverified 11/02/25 17:36 Consultations 11/02/25 19:47 ED Decision to Admit Stat 11/02/25 22:09 Consult Podiatry Routine 11/05/25 08:00 Consult Vascular Surgery Routine Procedures Performed Operation Date: 11/06/25 07:00 Actual Procedures p Amputation right hallux - Jarett M Yarger, DPM Ordered Studies 11/03/25 08:30 MR foot RT wo/w con Urgent 11/04/25 US ankle/brachial index ltd Routine US arterial duplex LE RT Routine Diabetes Follow up Diabetes Follow-up Needed for HgbA1c >9%,Newly Diagnosed Diabetes Hospital Course (1) Unspecified open wound, right foot, initial encounter: 65-year-old gentleman was managed for the following: Right foot wound infection Acute osteomyelitis of right great toe distal phalanx PAD Patient presented to the hospital with wound on his right foot. Has not seen physician for several years. MRI of the foot shows acute osteomyelitis of right great toe distal phalanx. 1.8 cm heterogeneous mass involving medial edge of distal plantar fascia; plantar fibromatosis. Soft tissue sarcoma is much less likely but cannot be excluded Underwent debridement at bedside of diabetic ulceration of right great toe by podiatry on November 03, 202511/03 Wound Cx: Strep canis, Anaerococcus vaginalis Blood cultures negative x 48 hrs Discussed with podiatry 11/07, postoperatively the margins were healthy and okay for de-escalation of antibiotics to short term oral course. zosyn 11/02 and vanc 11/02 --> s/p Right hallux amputation 11/06 --> de- escalation to Augmentin 11/07, plan for 1 week of antibiotic. Follow-up on operative culture and pathology. Operative culture w/ MSSA. Operative Path result on proximal margin free of OM. Vascular surgery was consulted for peripheral artery disease; do not recommend intervention at this time. Continue on aspirin and Lipitor f/u w/ podiatry in 1-2 weeks of dc. Uncontrolled diabetes mellitus type 2 Currently not taking any medications ISS, basal Insulin, Accu checks, Diabetic diet Pharmacy Glycemic control consult certified breastfeeding educator consulted; appreciate recommendations HbA1c of 10% Plan for long acting insulin and metformin - pt agreeable after discussing side effect profile. Elevated blood pressure: Likely situational, monitor, now better. Coronary artery disease S/P stent : Currently not taking any medications, was started on aspirin and atorvastatin this admission. continue. Tobacco use disorder Currently smokes 1-1/2 to 2 packs/day Counseled to quit smoking Nicotine patch/gum Alcohol use disorder Drinks 2 shots of shannan, 2 beers on daily basis Last drink the day before presentation. Thiamine, folic acid Counseled to quit drinking s/p Alcohol withdrawal protocol DVT Px: Heparin SQ CODE STATUS: Full code Dispo: once sensitivity on operative culture results. Patient is being discharged to home with home health with following instructions at the point of discharge: Follow-up with your primary care physician within a week time and likely you will need labs CBC/CMP/magnesium/phosphorus. Follow-up with podiatry in 1 to 2 weeks time of discharge. Establish with wound care upon discharge, coordinate with your PCP office to set up the referral. Follow-up with vascular surgery as an outpatient in 1 to 2 months time. You are being discharged on antibiotic to complete the course for your foot infection. You are also diagnosed with peripheral artery disease and diabetes, appropriate medications has been dispensed. As discussed at the bedside, maintain compliance. Recommend that you establish with diabetic clinic upon discharge, coordinate with your PCP office to set up the referral. Recommend that you quit using tobacco and alcohol. Take your medications as prescribed. Please make sure that you are able to get your medications today by calling your pharmacy before you leave the hospital so that your treatment continuity is not broken. Please note the above document was generated using voice recognition software. It may contain grammatical, syntax or spelling errors. Any formal questions or concerns about the content, text or information contained within the body of this dictation should be directly addressed to the provider for clarification Home Health Attestation I certify that this patient is under my care and that I, or a physicians ophthalmic assistant working with me, had a face to-face encounter that meets the home health [id number] encounter requirements with this patient. The encounter with the patient was in whole, or in part, for the following medical condition, which is the primary reason for home health care (list medical condition): I certify that, based on my findings, the following services are medically necessary home health services: My clinical findings support the need for the above services because: Further, I certify that my clinical findings support that this patient is homebound (i.e. absences from home require considerable and taxing effort and are for medical reasons or caodaism services or infrequently or of short duration when for other reasons) because: Certification for Home Health Services: Based on the above findings, I certify that this patient is confined to the home and needs intermittent correction care, physical therapy and/or speech therapy or continues to need occupational therapy. The patient is under my care, and I have initiated the establishment of the plan of care. This patient will be followed by a physician who will periodically review the plan of care. Total Time Total Time Spent Total Time Spent (In Minutes): 40 Discharge Plan Discharge Items Patient Disposition: Home - Home Health Services Reason For Visit: FOOT WOUND INFECTION Discharge Diagnosis: Right foot wound infection Acute osteomyelitis of right great toe distal phalanx PAD Activity: Resume your previous activity Non-emergency contact: Primary Care Provider Call non-emergency contact if: you have any medication questions and your symptoms worsen Follow-up/Referrals: Javi Morris MD [Primary Care Provider] - (Date & Time 11/13/2025 8:20 AM Provider: Flaquito Tavarez CRNP Family [facility] ) Diet: Carb Consistent or DM2 Addtl Attending Provider Instructions: Follow-up with your primary care physician within a week time and likely you will need labs CBC/CMP/magnesium/phosphorus. Follow-up with podiatry in 1 to 2 weeks time of discharge. Establish with wound care upon discharge, coordinate with your PCP office to set up the referral. Follow-up with vascular surgery as an outpatient in 1 to 2 months time. You are being discharged on antibiotic to complete the course for your foot infection. You are also diagnosed with peripheral artery disease and diabetes, appropriate medications has been dispensed. As discussed at the bedside, maintain compliance. Recommend that you establish with diabetic clinic upon discharge, coordinate with your PCP office to set up the referral. Recommend that you quit using tobacco and alcohol. Take your medications as prescribed. Please make sure that you are able to get your medications today by calling your pharmacy before you leave the hospital so that your treatment continuity is not broken. Addtl Residential Building Inspector Provider Instructions: Follow up with Dr. Glaser from vascular surgery as needed ([phone]) DIABETES RECOMMENDATIONS: 1.) Monitoring. - Check your blood sugar 2x/day. - Check fasting/before any food or drink every day. - Check another time. Try to change this other time from day to day (before lunch, before supper, before bed, 1-2 hours after any meal). - Use these results to guide diet changes. - Your provider will use these results to adjust your diabetes medications. - Aim to maintain blood sugar levels below 180 (ideally below 140 before meals) to support healing/continued recovery. - Notify your provider of blood sugar levels frequently above 180 or any value less than 80. 2.) Diet Changes. - Aim for regular meals thru the day- add something for breakfast. - Aim for more balanced meals with protein, fruit, vegetable. - Aim for small portions of carbohydrates/starches- bread, cereal, pasta/noodles, rice, potatoes, corn, snack foods, etc. - Try to avoid sugar-sweetened drinks and juices to drink. - Try to decrease the amount of alchol you drink. A good start would be the Shannan since it is made with fruit/is higher in sugar. 3.) Medications. - Glargine (Insulin) - Glargine (Lantus or Semglee or Basaglar) is a 24 hour, background insulin that helps cover the sugar (glucose) that your body makes. - Try to take it at the same time every morning. - Metformin (Diabetes Pill) - Metformin is a diabetes pill that helps decrease the amount of sugar released by the liver. - It also helps increase the ability of your cells to use glucose for energy. - Try to take Metformin with food to help minimize any stomach upset or diarrhea. If you have any questions, please call our diabetes office at [phone]. Take Care! Pending Studies at Discharge: No Stand-Alone Forms: My [facility], Smoking Cessation Medications and DC Order Prescriptions: New insulin glargine U-300 conc 300 unit/mL (3 mL) insulin pen 21 unit subcut DAILY Qty: 6 0RF (DME) pen needle, diabetic 32 gauge x 5/32" needle See Rx Instructions .Route Qty: 100 0RF Rx Instructions: 1x a day metformin 500 mg tablet extended release 24 hr 500 mg PO DAILY Qty: 30 0RF (DME) blood-glucose meter [True Metrix Glucose Meter] Misc See Rx Instructions .Route Qty: 1 0RF Rx Instructions: use with true metrix test strips 3x a day. (DME) True Metrix Glucose Test Strip Strip See Rx Instructions .Route Qty: 100 0RF Rx Instructions: 3x a day (DME) lancets [TRUEplus Lancets] 30 gauge misc See Rx Instructions .Route Qty: 100 0RF Rx Instructions: 3x a day amoxicillin-pot clavulanate 875-125 mg Tablet 1 tab PO BIDM 7 Days Qty: 14 0RF nicotine [Nicoderm CQ] 21 mg/24 hr Patch 24 Hour 1 patch transdermal QAM Qty: 28 0RF atorvastatin 40 mg Tablet 40 mg PO QAM Qty: 30 0RF aspirin 81 mg Tablet,Delayed Release (Dr/Ec) 81 mg PO DAILY Qty: 30 0RF folic acid 1 mg Tablet 1 mg PO QAM Qty: 30 0RF thiamine HCl (vitamin B1) 100 mg Tablet 100 mg PO QAM Qty: 30 0RF Continued naproxen sodium 220 mg Tablet 220 mg PO DAILY PRN (Reason: Pain) Patient Comments: OTC unknown dose Discharge Orders: Discharge Order (Routine); Ordered 11/10/25 Ordered By: Jena Dixon Admission Data Admit Date/Time: 11/02/25 19:12 Attending Provider: Jena Dixon Admit Provider: Pj Lake Primary Care Provider: Javi Morris Other Providers: Pj Lake; Misael Kaufman; Zuly Petersen; Elyse Oneal; Sofi Mcmahon; Juliana Steven; Damon Barakat; Patricia Servin; Rudi Matta; Mary Carey; Agus Mccormack; Bette Medrano; Hardik Tejada; Deborah Troncoso; Jennifer Bell; Murphy Enciso; Hawk Boyd; Shantal aHyden; Candis Rome; Emily Prescott; Tabatha Zhao; Erin Estrada; Misael Chavira; Hawk Medrano; Felicia Dasilva; Juanita Higgins; Aldo Glaser
--- NOTE | 2025-11-10 13:20 | Hospitalist Progress Note ---
Date of Service November 10, 2025 Assessment & Plan (1) Unspecified open wound, right foot, initial encounter: Plan: 65-year-old gentleman was managed for the following: Right foot wound infection Acute osteomyelitis of right great toe distal phalanx PAD Patient presented to the hospital with wound on his right foot. Has not seen physician for several years. MRI of the foot shows acute osteomyelitis of right great toe distal phalanx. 1.8 cm heterogeneous mass involving medial edge of distal plantar fascia; plantar fibromatosis. Soft tissue sarcoma is much less likely but cannot be excluded Underwent debridement at bedside of diabetic ulceration of right great toe by podiatry on November 03, 202511/03 Wound Cx: Strep canis, Anaerococcus vaginalis Blood cultures negative x 48 hrs Discussed with podiatry 11/07, postoperatively the margins were healthy and okay for de-escalation of antibiotics to short term oral course. zosyn 11/02 and vanc 11/02 --> s/p Right hallux amputation 11/06 --> de- escalation to Augmentin 11/07, plan for 1 week of antibiotic. Follow-up on operative culture and pathology. Operative culture w/ MSSA. Operative Path result on proximal margin free of OM. Vascular surgery was consulted for peripheral artery disease; do not recommend intervention at this time. Continue on aspirin and Lipitor f/u w/ podiatry in 1-2 weeks of dc. Uncontrolled diabetes mellitus type 2 Currently not taking any medications ISS, basal Insulin, Accu checks, Diabetic diet Pharmacy Glycemic control consult order administrator consulted; appreciate recommendations HbA1c of 10% Plan for long acting insulin and metformin - pt agreeable after discussing side effect profile. Elevated blood pressure: Likely situational, monitor, now better. Coronary artery disease S/P stent : Currently not taking any medications, was started on aspirin and atorvastatin this admission. continue. Tobacco use disorder Currently smokes 1-1/2 to 2 packs/day Counseled to quit smoking Nicotine patch/gum Alcohol use disorder Drinks 2 shots of swathi, 2 beers on daily basis Last drink the day before presentation. Thiamine, folic acid Counseled to quit drinking s/p Alcohol withdrawal protocol DVT Px: Heparin SQ CODE STATUS: Full code Dispo: once sensitivity on operative culture results. Pt can't get his insulin until Wednesday after Wednesday afternoon (confirmed w/ pt's pharmacy). D/w pharmacy, they are not comfortable dispensing pt 2 days worth of insulin, had a long discussion with them. Pt's discharge will be cancelled. Pt has been advised to call nearby [facility] and ask if they have insulin on stock so they can pull my script from [facility], if such is arranged, will dc patient. Please note the above document was generated using voice recognition software. It may contain grammatical, syntax or spelling errors. Any formal questions or concerns about the content, text or information contained within the body of this dictation should be directly addressed to the provider for clarification Admission and Anticipated Discharge Date Admission Date: November 02, 2025 Subjective Patient resting comfortably in hospital bed eating lunch. Denies pain in the right foot. Dressing remains clean dry and intact from 11/07/2025. Physical Exam Physical Exam: General Appearance: Thin, frail, chronically ill appearing, no apparent distress Respiratory/Chest: Normal breath sounds, CTA, No accessory muscle use Cardiovascular: S1, S2, No murmur Abdomen/GI:Soft, Non tender, Bowel sounds present Extremities/Musculoskeletal:normal inspection, no B/L LE edema Neurologic/Psych:AAOX3, grossly no focal neurological deficits Skin: normal color, warm,Dressing in place over the foot. No soakage noted Results & Data Results & Data Vital Signs (Past 12 Hours) Vital Signs Temp Pulse Pulse Resp BP Pulse Ox O2 Del Method 11/10/25 11:52 36.7 C 90 17 128/83 96 Room Air 11/10/25 07:50 36.8 C 63 17 151/86 H 97 Room Air 11/10/25 05:35 63 11/10/25 03:23 37.0 C 62 16 155/82 H 95 Room Air
[2025-11-11] MEDS: LANTUS PER UNIT CHARGE SC SCH (08:31)
--- NOTE | 2025-11-11 13:55 | Hospitalist Progress Note ---
Date of Service November 11, 2025 Assessment & Plan (1) Unspecified open wound, right foot, initial encounter: Plan: 65-year-old gentleman was managed for the following: Right foot wound infection Acute osteomyelitis of right great toe distal phalanx PAD Patient presented to the hospital with wound on his right foot. Has not seen physician for several years. MRI of the foot shows acute osteomyelitis of right great toe distal phalanx. 1.8 cm heterogeneous mass involving medial edge of distal plantar fascia; plantar fibromatosis. Soft tissue sarcoma is much less likely but cannot be excluded Underwent debridement at bedside of diabetic ulceration of right great toe by podiatry on November 03, 202511/03 Wound Cx: Strep canis, Anaerococcus vaginalis Blood cultures negative x 48 hrs Discussed with podiatry 11/07, postoperatively the margins were healthy and okay for de-escalation of antibiotics to short term oral course. zosyn 11/02 and vanc 11/02 --> s/p Right hallux amputation 11/06 --> de- escalation to Augmentin 11/07, plan for 1 week of antibiotic. Follow-up on operative culture and pathology. Operative culture w/ MSSA. Operative Path result on proximal margin free of OM. Vascular surgery was consulted for peripheral artery disease; do not recommend intervention at this time. Continue on aspirin and Lipitor f/u w/ podiatry in 1-2 weeks of dc. Uncontrolled diabetes mellitus type 2 Currently not taking any medications ISS, basal Insulin, Accu checks, Diabetic diet Pharmacy Glycemic control consult nursing educator consulted; appreciate recommendations HbA1c of 10% Plan for long acting insulin and metformin - pt agreeable after discussing side effect profile. Elevated blood pressure: Likely situational, monitor, now better. Coronary artery disease S/P stent : Currently not taking any medications, was started on aspirin and atorvastatin this admission. continue. Tobacco use disorder Currently smokes 1-1/2 to 2 packs/day Counseled to quit smoking Nicotine patch/gum Alcohol use disorder Drinks 2 shots of swathi, 2 beers on daily basis Last drink the day before presentation. Thiamine, folic acid Counseled to quit drinking s/p Alcohol withdrawal protocol DVT Px: Heparin SQ CODE STATUS: Full code Dispo: once sensitivity on operative culture results. Pt can't get his insulin until Wednesday later in the day (confirmed w/ pt's pharmacy 11/10; says no insulin at diff strength is also available). D/w hospital pharmacy 11/10, they are not comfortable dispensing pt 2 days worth of insulin, had a long discussion with them. Pt's discharge was cancelled. Pt has been advised to call nearby [facility] and ask if they have insulin on stock so they can pull my script from [facility], if such is arranged and they can get meds today, will dc patient. Pt and his nephew has been updated and made aware on this situation. Please note the above document was generated using voice recognition software. It may contain grammatical, syntax or spelling errors. Any formal questions or concerns about the content, text or information contained within the body of this dictation should be directly addressed to the provider for clarification Admission and Anticipated Discharge Date Admission Date: November 02, 2025 Subjective Patient resting comfortably in hospital bed eating lunch. Denies pain in the right foot. Dressing remains clean dry and intact from 11/07/2025. Physical Exam Physical Exam: General Appearance: Thin, frail, chronically ill appearing, no apparent distress Respiratory/Chest: Normal breath sounds, CTA, No accessory muscle use Cardiovascular: S1, S2, No murmur Abdomen/GI:Soft, Non tender, Bowel sounds present Extremities/Musculoskeletal:normal inspection, no B/L LE edema Neurologic/Psych:AAOX3, grossly no focal neurological deficits Skin: normal color, warm,Dressing in place over the foot. No soakage noted Results & Data Results & Data Vital Signs (Past 12 Hours) Vital Signs Temp Pulse Resp BP Pulse Ox O2 Del Method 11/11/25 07:38 36.6 C 62 18 174/83 H 97 Room Air
[2025-11-12 07:22] VITALS: BP 170/89; PULSE 79; RESP 16; TEMP 98.8; O2SAT 96
[2025-11-12] MEDS: LANTUS PER UNIT CHARGE SC SCH (08:49)
== END 2025-11-12 12:55 | disposition home health service (06) | DRG 617 ==
LOC: ED 16:16 → SUATTDRO 19:12 → EDINP 19:12 → 2N 22:10 → 3N 11-10 22:14